=== PATIENT | male | born 1945 | race Caucasian/White ===

== ENCOUNTER 2017-08-04 09:51 | Inpatient (IN) | payer MEDICARE, OTHER ==
[2017-08-04] VITALS (19 sets, daily range): BP systolic 83–159; BP diastolic 47–114; PULSE 82–159; RESP 16–30; TEMP 97.6–98.6; O2SAT 90–99
[~2017-08-04] VITALS: Ht 175.3 cm; Wt 53.7 kg
[2017-08-04] MEDS ORDERED: SODIUM CHLORIDE 0.9% FLUSH 10 ML FLUSH IV FLUSH PRN ×2 (10:15→12:45)
[2017-08-04] MEDS ORDERED: ENOXAPARIN SODIUM 60 MG/0.6 ML SYRINGE SQ ONE (10:15)
[2017-08-04] MEDS ORDERED: DILTIAZEM HCL 25 MG/5 ML VIAL IV PUSH ONE (10:15)
[2017-08-04 10:21] LABS: AUTOMATED NEUTROPHIL # 9.3 TH/MM3 (1.8-7.7); BASOPHIL # 0.1 TH/MM3 (0-0.2); BASOPHIL % 0.9 % (0.0-2.0); EOSINOPHIL # 0.3 TH/MM3 (0-0.4); HEMATOCRIT 40.4 % (39.0-51.0); HEMOGLOBIN 13.1 GM/DL (13.0-17.0); LYMPH % 5.7 % (9.0-44.0); LYMPHOCYTE # 0.6 TH/MM3 (1.0-4.8); MEAN CELL VOLUME 89.3 FL (80.0-100.0); MEAN CORPUSCULAR HGB CONC 32.5 % (32.0-36.0); MEAN PLATELET VOLUME 7.8 FL (7.0-11.0); MONO % 6.6 % (0.0-8.0); MONOCYTE # 0.7 TH/MM3 (0-0.9); NEUT % 83.8 % (16.0-70.0); PLATELET COUNT 598 TH/MM3 (150-450); RED BLOOD COUNT 4.52 MIL/MM3 (4.50-5.90); RED CELL DISTRIBUTION WIDTH 14.9 % (11.6-17.2)
[2017-08-04 10:29] LABS: CHLORIDE 101 MEQ/L (98-107); SODIUM (NA) 138 MEQ/L (136-145)
[2017-08-04 10:32] LABS: CALCIUM 8.6 MG/DL (8.5-10.1)
[2017-08-04 10:33] LABS: ALBUMIN 2.9 GM/DL (3.4-5.0); BICARBONATE 29.5 MEQ/L (21.0-32.0); BLOOD UREA NITROGEN 14 MG/DL (7-18); GLUCOSE,RANDOM 141 MG/DL (74-106); INTERNATIONAL NORMALIZED RATIO 1.2 RATIO; PROTHROMBIN TIME - PATIENT 12.2 SEC (9.8-11.6)
[2017-08-04 10:36] LABS: ALT (GPT) 24 U/L (12-78); AST (GOT) 23 U/L (15-37); CREATININE 0.91 MG/DL (0.60-1.30); GLOMERULAR FILTRATION RATE 82 ML/MIN (>89)
[2017-08-04 10:37] LABS: TOTAL BILIRUBIN ADULT 0.3 MG/DL (0.2-1.0); TOTAL PROTEIN 8.3 GM/DL (6.4-8.2)
[2017-08-04 10:39] LABS: ALKALINE PHOSPHATASE 164 U/L (45-117)
[2017-08-04 10:41] LABS: TROPONIN I LESS THAN 0.02 NG/ML (0.02-0.05)
--- NOTE | 2017-08-04 10:56 | PD ---
HPI . Dyspnea Chief Complaint: Cardiac Complaint Time Seen by Provider: 10:07 Travel History International Travel<30 days: No Contact w/Intl Traveler<30days: No Traveled to known affect area: No History of Present Illness HPI This patient presents with chief complaint of dyspnea, onset was 2 weeks ago. Dyspnea is worse at nighttime when he lays down. Symptoms were worse than usual last night. He states that he finally decided that he needed to see someone about it today and went to an urgent care center. He was found to be in atrial fibrillation and sent to us for further evaluation. Patient states that he has no previous history of an irregular heartbeat and did not realize that his heart was beating irregularly. He has no idea when it may have started. The patient is very thin. His confirms that he has always been thin. He has had some weight loss over the last several years but nothing acute. PFSH Past Medical History Narrative Medical This patient denies any underlying medical illnesses. 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[place]) Social History Alcohol Use: No Tobacco Use: Yes (quit 4 years ago, e cig now) Substance Use: No Allergies-Medications (Allergen,Severity, Reaction): Coded Allergies: No Known Allergies (Unverified , 08/04/17) Reported Meds & Prescriptions Reported Meds & Active Scripts Active No Active Prescriptions or Reported Medications Review of Systems Except as stated in HPI: all other systems reviewed are Neg General / Constitutional: Positive: Weight Loss (he reports a gradual weight loss of 10-15 pounds over the last several years.) Cardiovascular: No: Chest Pain or Discomfort, Palpitations Respiratory: Positive: Shortness of Breath Physical Exam Narrative GENERAL: This is a very thin-appearing man who looks chronically ill SKIN: warm/dry. HEAD: Normocephalic. Atraumatic. EYES: Pupils equal and round. No scleral icterus. No injection or drainage. ENT: No nasal bleeding or discharge. Mucous membranes pink and moist. NECK: Full range of motion without pain.. CARDIOVASCULAR: Irregular rhythm with a rate of about 150. RESPIRATORY: No accessory muscle use. Clear to auscultation. Breath sounds are diminished on the right compared to the left. GASTROINTESTINAL: Abdomen soft. Nontender. Bowel sounds present. Nondistended. MUSCULOSKELETAL: No obvious deformities. 1+ pretibial pitting edema. NEUROLOGICAL: Awake and alert. No obvious cranial nerve deficits. Motor grossly within normal limits. Normal speech. PSYCHIATRIC: Appropriate mood and affect; insight and judgment normal. Data Data Last Documented VS Vital Signs Date Time Temp Pulse Resp B/P (MAP) Pulse Ox O2 Delivery O2 Flow Rate FiO2 08/04/17 12:10 100 16 111/67 (82) 98 Room Air 08/04/17 11:44 2.00 08/04/17 10:04 97.6 Orders Orders Ecg Monitoring (08/04/17 10:07) Blood Pressure (08/04/17 10:07) Iv Access Insert/Monitor (08/04/17 10:07) Oximetry (08/04/17 10:07) Vital Signs (08/04/17 10:07) Diltiazem Inj (Cardizem Inj) (08/04/17 10:15) Sodium Chloride 0.9% Flush (Ns Flush) (08/04/17 10:15) Complete Blood Count With Diff (08/04/17 10:08) Comprehensive Metabolic Panel (08/04/17 10:08) B-Type Natriuretic Peptide (08/04/17 10:08) Act Partial Throm Time (Ptt) (08/04/17 10:08) Prothrombin Time / Inr (Pt) (08/04/17 10:08) Troponin I (08/04/17 10:08) Oxygen Administration (08/04/17 10:08) Chest, Single Ap (08/04/17 10:08) Enoxaparin Inj (Lovenox Inj) (08/04/17 10:15) Diltiazem Inj (Cardizem Inj) (08/04/17 10:45) Diltiazem Inj (Cardizem Inj) (08/04/17 11:00) Electrocardiogram (08/04/17 ) Consult Cardiology (08/04/17 ) Admit Order (Ed Use Only) (08/04/17 ) Track Grinder / Telemetry MARTHA.Q8H (08/04/17 12:42) Vital Signs (Adult) Q4H (08/04/17 12:42) Diet Heart Healthy (08/04/17 Lunch) Activity Oob With Assistance (08/04/17 12:42) Notify Dr: Other (08/04/17 12:42) Labs Laboratory Tests Test 08/04/17 10:10 White Blood Count 11.0 TH/MM3 Red Blood Count 4.52 MIL/MM3 Hemoglobin 13.1 GM/DL Hematocrit 40.4 % Mean Corpuscular Volume 89.3 FL Mean Corpuscular Hemoglobin 29.0 PG Mean Corpuscular Hemoglobin Concent 32.5 % Red Cell Distribution Width 14.9 % Platelet Count 598 TH/MM3 Mean Platelet Volume 7.8 FL Neutrophils (%) (Auto) 83.8 % Lymphocytes (%) (Auto) 5.7 % Monocytes (%) (Auto) 6.6 % Eosinophils (%) (Auto) 3.0 % Basophils (%) (Auto) 0.9 % Neutrophils # (Auto) 9.3 TH/MM3 Lymphocytes # (Auto) 0.6 TH/MM3 Monocytes # (Auto) 0.7 TH/MM3 Eosinophils # (Auto) 0.3 TH/MM3 Basophils # (Auto) 0.1 TH/MM3 CBC Comment DIFF FINAL Differential Comment Prothrombin Time 12.2 SEC Prothromb Time International Ratio 1.2 RATIO Activated Partial Thromboplast Time 27.3 SEC Blood Urea Nitrogen 14 MG/DL Creatinine 0.91 MG/DL Random Glucose 141 MG/DL Total Protein 8.3 GM/DL Albumin 2.9 GM/DL Calcium Level 8.6 MG/DL Alkaline Phosphatase 164 U/L Aspartate Amino Transf (AST/SGOT) 23 U/L Alanine Aminotransferase (ALT/SGPT) 24 U/L Total Bilirubin 0.3 MG/DL Sodium Level 138 MEQ/L Potassium Level 3.7 MEQ/L Chloride Level 101 MEQ/L Carbon Dioxide Level 29.5 MEQ/L Anion Gap 8 MEQ/L Estimat Glomerular Filtration Rate 82 ML/MIN Troponin I LESS THAN 0.02 NG/ML B-Type Natriuretic Peptide 238 PG/ML [facility] Medical Decision Making Medical Screen Exam Complete: Yes Emergency Medical Condition: Yes Interpretation(s) His EKG shows atrial fibrillation with a rapid ventricular response Differential Diagnosis Differential diagnosis of tachycardia includes but is not limited to PSVT, atrial fibrillation with a rapid ventricular response, sinus tachycardia (due to hypovolemia, anemia, thyrotoxicosis, PE) Narrative Course This patient was sent to us from urgent care because of AF with RVR. He has no previous similar history. His presenting symptom is dyspnea especially at nighttime when he tries to lay down. Cardizem was ordered. His heart rate went down to about 100-110 and the initial bolus of Cardizem. A Cardizem drip was ordered. However, his heart rate is now jumped up to about 140. Therefore, a second bolus has also been ordered. In addition, I have given him a dose of Lovenox. Cardiac workup is in process. I have informed the patient and his that he will need to be admitted to the hospital for further evaluation of this. CBC & BMP Diagram 08/04/17 10:10 Total Protein 8.3 H, Albumin 2.9 L, Calcium Level 8.6, Alkaline Phosphatase 164 H, Aspartate Amino Transf (AST/SGOT) 23, Alanine Aminotransferase (ALT/SGPT) 24 , Total Bilirubin 0.3 trop < 0.02. BNP 238 Chest x-ray to my interpretation shows a right pleural effusion. Critical Care Narrative Aggregate critical care time was 45 minutes. Time to perform other separately billable procedures was not included in the critical care time. My time did not include minutes spent treating any other patients simultaneously or on activities that did not directly contribute to the patient's treatment. The services I provided to this patient were to treat and/or prevent clinically significant deterioration due to AF with RVR. I provided critical care services requiring my management, as noted below: Chart data review, documentation time, medication orders and management, vital sign assessments/reviewing monitor data, ordering and reviewing lab tests, ordering and interpreting/reviewing x-rays and diagnostic studies, care of the patient and discussion of the patient with the admitting physicians Physician Communication Physician Communication initial contact with the call center was at 11:31 Diagnosis Primary Impression: Atrial fibrillation with RVR Admitting Information Admitting Physician Requests: Admit Scripts No Active Prescriptions or Reported Meds Condition: Stable Gunjan Carrasquillo MD Aug 04, 2017 10:56
[2017-08-04] MEDS ORDERED: DILTIAZEM HCL 25 MG/5 ML VIAL IV PUSH PRN (11:00)
[2017-08-04] MEDS: DILTIAZEM INJ 125 MG in SODIUM CHLORIDE 0.9% INJ 100 ML IV PRN (11:03)
--- NOTE | 2017-08-04 11:14 | RADRPT ---
EXAM DATE/TIME: 08/04/2017 10:46 [facility] COMPARISON: No previous studies available for comparison. INDICATIONS : Short of breath. MEDICAL HISTORY : None. SURGICAL HISTORY : Splenectomy. ENCOUNTER: Initial ACUITY: 4 - 6 days PAIN SCORE: 0/10 LOCATION: Bilateral chest FINDINGS: Moderate size right effusion and small left effusion. Basilar airspace disease, right greater than le ft. Heart size mildly enlarged. CONCLUSION: 1. Moderate right effusion and small left effusion with basilar airspace disease predominantly on the right. Differential diagnosis includes asymmetric edema and infection. Manuel Beckham MD on August 04, 2017 at 11:11 Board Certified Radiologist. This report was verified electronically.
[2017-08-04] MEDS ORDERED: NALOXONE HCL 0.4 MG/ML AMP IV PUSH PRN (12:45)
[2017-08-04] MEDS ORDERED: ONDANSETRON HCL 4 MG/2 ML VIAL IVP PRN (12:45)
[2017-08-04] MEDS ORDERED: MAGNESIUM HYDROXIDE SUSP 30 ML CUP PO PRN (12:45)
--- NOTE | 2017-08-04 16:30 | HHI.HP ---
[facility] Service [place] [facility] Primary Care Physician No Primary Care Physician Admission Diagnosis new onset AF with RVR Diagnoses: Travel History International Travel<30 Days: No Contact w/Intl Traveler <30 Da: No Traveled to Known Affected Are: No History of Present Illness Mr. Ca is a 72 year old male. He has no previous medical history other than a past history of smoking. He came into the ER with shortness of breath. He thought it was bronchitis. She is found to have A. fib RVR. No prior history of A. fib or RVR. Shortness of breath is more likely related to his degree of pulmonary edema, however he does have a past history of smoking so COPD may be present. No complaints of chest pain. Review of Systems Constitutional: DENIES: Fatigue, Fever, Chills, Night Sweats Eyes: DENIES: Blurred vision, Diplopia, Eye inflammation, Eye pain Ears, nose, mouth, throat: DENIES: Tinnitus, Hearing loss, Vertigo, Nasal discharge Respiratory: COMPLAINS OF: Shortness of breath, DENIES: Cough, Snoring, Wheezing Cardiovascular: COMPLAINS OF: Palpitations, DENIES: Chest pain, Syncope Gastrointestinal: DENIES: Abdominal pain, Black stools, Bloody stools, Constipation Musculoskeletal: DENIES: Joint pain, Muscle aches, Stiffness, Joint Swelling Integumentary: DENIES: Abnormal pigmentation, Nail changes, Pruritus, Rash Hematologic/lymphatic: DENIES: Bruising, Lymphadenopathy Immunologic/allergic: DENIES: Eczema, Urticaria Neurologic: DENIES: Abnormal gait, Headache, Paresthesias Psychiatric: DENIES: Anxiety, Confusion, Hallucinations Past Family Social History Past Medical History None Past Surgical History None Reported Medications Reported Meds & Active Scripts Active No Active Prescriptions or Reported Medications Allergies: Coded Allergies: No Known Allergies (Unverified , 08/04/17) Active Ordered Medications Administered Medications Medications (Trade) Dose Ordered Sig/Rakesh Route PRN Reason Start Time Stop Time Status Last Admin Dose Admin Diltiazem HCl 125 mg/Sodium Chloride 125 ml @ 5 mls/hr TITRATE PRN IV Tachycardia 08/04/17 10:45 08/04/17 11:03 Diltiazem HCl (Cardizem Inj) 19 mg ONCE PRN IV PUSH RESPONSE 08/04/17 11:00 08/04/17 11:41 Family History Uterine cancer in mother COPD and unspecified cancer in father Social History Patient has a past history of smoking and has quit and been on and e-cigarette for the past 4 years No illicit drug abuse No alcohol abuse Physical Exam Vital Signs Vital Signs Date Time Temp Pulse Resp B/P (MAP) Pulse Ox O2 Delivery O2 Flow Rate FiO2 08/04/17 15:31 97 Nasal Cannula 2.00 08/04/17 15:02 08/04/17 14:57 100 20 98/47 (64) 08/04/17 14:50 98.6 115 18 83/69 (74) 97 08/04/17 13:46 106 16 95/68 (77) 98 Nasal Cannula 2.00 08/04/17 13:45 98 Nasal Cannula 2.00 08/04/17 12:10 100 16 111/67 (82) 98 Room Air 08/04/17 11:44 121 16 133/86 (102) 98 Nasal Cannula 2.00 08/04/17 11:31 141 16 121/86 (98) 99 Nasal Cannula 2.00 08/04/17 11:03 123 128/84 08/04/17 10:40 109 16 120/84 (96) 99 Nasal Cannula 2.00 08/04/17 10:13 96 Nasal Cannula 2.00 08/04/17 10:13 96 Nasal Cannula 2.00 08/04/17 10:07 96 Nasal Cannula 2.00 08/04/17 10:04 97.6 159 20 159/114 (129) 94 Physical Exam GENERAL: NAD, A&Ox3 HEAD: Normocephalic. NECK: Supple, trachea midline. No lymphadenopathy. EYES: No scleral icterus. No injection or drainage. CARDIOVASCULAR: Tachycardic rhythm, irregularly irregular rate without murmurs, gallops, or rubs. RESPIRATORY: Breath sounds equal bilaterally. No accessory muscle use. GASTROINTESTINAL: Abdomen soft, non-tender, nondistended. MUSCULOSKELETAL: No cyanosis, or edema. SKIN: Warm and dry. NEURO: No focal neurological deficitis. Laboratory Laboratory Tests Test 08/04/17 10:10 White Blood Count 11.0 Red Blood Count 4.52 Hemoglobin 13.1 Hematocrit 40.4 Mean Corpuscular Volume 89.3 Mean Corpuscular Hemoglobin 29.0 Mean Corpuscular Hemoglobin Concent 32.5 Red Cell Distribution Width 14.9 Platelet Count 598 Mean Platelet Volume 7.8 Neutrophils (%) (Auto) 83.8 Lymphocytes (%) (Auto) 5.7 Monocytes (%) (Auto) 6.6 Eosinophils (%) (Auto) 3.0 Basophils (%) (Auto) 0.9 Neutrophils # (Auto) 9.3 Lymphocytes # (Auto) 0.6 Monocytes # (Auto) 0.7 Eosinophils # (Auto) 0.3 Basophils # (Auto) 0.1 CBC Comment DIFF FINAL Differential Comment Prothrombin Time 12.2 Prothromb Time International Ratio 1.2 Activated Partial Thromboplast Time 27.3 Blood Urea Nitrogen 14 Creatinine 0.91 Random Glucose 141 Total Protein 8.3 Albumin 2.9 Calcium Level 8.6 Alkaline Phosphatase 164 Aspartate Amino Transf (AST/SGOT) 23 Alanine Aminotransferase (ALT/SGPT) 24 Total Bilirubin 0.3 Sodium Level 138 Potassium Level 3.7 Chloride Level 101 Carbon Dioxide Level 29.5 Anion Gap 8 Estimat Glomerular Filtration Rate 82 Troponin I LESS THAN 0.02 B-Type Natriuretic Peptide 238 Result Diagram: 08/04/17 1010 08/04/17 1010 Imaging Last Impressions Chest X-Ray 08/04/17 1008 Signed Impressions: Service Date/Time: Friday, August 04, 2017 10:46 - CONCLUSION: 1. Moderate right effusion and small left effusion with basilar airspace disease predominantly on the right. Differential diagnosis includes asymmetric edema and infection. Manuel Beckham MD Caprini VTE Risk Assessment Caprini VTE Risk Assessment: No/Low Risk (score <= 1) Caprini Risk Assessment Model Point Value = 1 Point Value = 2 Point Value = 3 Point Value = 5 Age 41-60 Minor surgery BMI > 25 kg/m2 Swollen legs Varicose veins or History of unexplained or recurrent spontaneous Oral contraceptives or hormone replacement Sepsis (< 1 month) Serious lung disease, including pneumonia (< 1 month) Abnormal pulmonary function Acute myocardial infarction Congestive heart failure (< 1 month) History of inflammatory bowel disease Medical patient at bed rest Age 61-74 Arthroscopic surgery Major open surgery (> 45 min) Laparoscopic surgery (> 45 min) Malignancy Confined to bed (> 72 hours) Immobilizing plaster cast Central venous access Age >= 75 History of VTE Family history of VTE Factor V Leiden Prothrombin [id number] Lupus anticoagulant Anticardiolipin antibodies Elevated serum homocysteine Heparin-induced thrombocytopenia Other congenital or acquired thrombophilia Stroke (< 1 month) Elective arthroplasty Hip, pelvis, or leg fracture Acute spinal cord injury (< 1 month) Prophylaxis Regimen Total Risk Factor Score Risk Level Prophylaxis Regimen 0-1 Low Early ambulation 2 Moderate Order ONE of the following: *Sequential Compression Device (SCD) *Heparin 5000 units SQ BID 3-4 Higher Order ONE of the following medications: *Heparin 5000 units SQ TID *Enoxaparin/Lovenox 40 mg SQ daily (WT < 150 kg, CrCl > 30 mL/min) *Enoxaparin/Lovenox 30 mg SQ daily (WT < 150 kg, CrCl > 10-29 mL/min) *Enoxaparin/Lovenox 30 mg SQ BID (WT < 150 kg, CrCl > 30 mL/min) AND/OR *Sequential Compression Device (SCD) 5 or more Highest Order ONE of the following medications: *Heparin 5000 units SQ TID (Preferred with Epidurals) *Enoxaparin/Lovenox 40 mg SQ daily (WT < 150 kg, CrCl > 30 mL/min) *Enoxaparin/Lovenox 30 mg SQ daily (WT < 150 kg, CrCl > 10-29 mL/min) *Enoxaparin/Lovenox 30 mg SQ BID (WT < 150 kg, CrCl > 30 mL/min) AND *Sequential Compression Device (SCD) Assessment and Plan Problem List: (1) Pleural effusion ICD Code: J90 - Pleural effusion, not elsewhere classified (2) Atrial fibrillation with RVR ICD Code: I48.91 - Unspecified atrial fibrillation Status: Acute Assessment and Plan 72-year-old male admitted secondary to new onset A. fib RVR A. fib RVR Evaluate for ACS Follow cardiac enzymes Aspirin daily Oxygen Follow on telemetry Cardiology consult Dyspnea Treat A-fib RVR Oxygen as needed Pleural effusion May be secondary to A. fib RVR versus chronic Before considering this as the cause of Dyspnea, correct A-fib RVR DVT Prophylaxis Lovenox Physician Certification 2 Midnight Certification Type: Admission for Inpatient Services Order for Inpatient Services The services are ordered in accordance with Medicare regulations or non- Medicare payer requirements, as applicable. In the case of services not specified as inpatient-only, they are appropriately provided as inpatient services in accordance with the 2-midnight benchmark. Estimated LOS (days): 2 days is the estimated time the patient will need to remain in the hospital, assuming treatment plan goals are met and no additional complications. Post-Hospital Plan: Home Alverto Coates MD Aug 04, 2017 16:30
--- NOTE | 2017-08-04 20:37 | MB ---
cc: Serafin Vallejo MD DATE OF CONSULT: A 72-year-old white male with no previous cardiac history, has developed shortness of breath which was worse at night. He came to the emergency room since he thought he had bronchitis. He was found to be in atrial fibrillation with rapid ventricular response. He has not had any chest pain. He has previous history of smoking. He has not had any peripheral edema. PAST MEDICAL HISTORY: Negative for hypertension, dyslipidemia, diabetes mellitus, coronary artery disease, or CVA. He does not have a primary physician. He is a retired and can go [place]. ALLERGIES: NONE. SOCIAL HISTORY: Patient has previous history of smoking but does not smoke anymore. He does not drink alcohol heavily. FAMILY HISTORY: Negative for heart disease. REVIEW OF SYSTEMS: Otherwise negative. PHYSICAL EXAMINATION: VITAL SIGNS: Blood pressure 109/64, pulse 106 and irregular. HEENT: Negative. NECK: Positive carotid upstrokes, no bruits. LUNGS: A few rhonchi. HEART: Irregularly irregular with no murmurs, rubs or gallops. ABDOMEN: Soft, no bruits. EXTREMITIES: Without edema. 2+ distal pulses. NEUROLOGIC: Grossly nonfocal. EKG was reviewed and showed atrial fibrillation with rapid ventricular response, and poor R wave progression over precordial leads. LABORATORY DATA: Hemoglobin 13.1. Potassium 3.7, creatinine 0.9, troponin negative x 2. AST 23, ALT 24. BNP 258. DIAGNOSES: 1. Atrial fibrillation with rapid ventricular response. 2. Dyspnea. 3. Pleural effusion. 4. Possible chronic obstructive pulmonary disease. 5. History of smoking. RECOMMENDATIONS: Mr. Ca presented with atrial fibrillation with rapid ventricular response. He has no previous cardiac history and he has not been seen by a physician for a while. I recommend rate control with IV diltiazem which can be switched to p.o. diltiazem. I recommend to start anticoagulation with Xarelto 20 mg a day. We will obtain echocardiogram to evaluate his left ventricular function. The patient is a retired and he can and wishes to follow up [facility]. I will be happy to see him back for followup in our office after discharge as well. I recommend to consider cardioversion after at least 3 weeks of therapeutic anticoagulation. MD DEBORAH Sanchez/ , 08:05 PM , 08:35 PM TOBY
[2017-08-04] MEDS: SODIUM CHLORIDE 0.9% FLUSH 10 ML FLUSH IV FLUSH SCH (20:40)
--- NOTE | 2017-08-04 22:57 | EKG ---
Date Performed: 08/04/2017 Time Performed: 09:58:40 PTAGE: 72 years EKG: ATRIAL FIBRILLATION WITH RAPID VENTRICULAR RESPONSE MARKED RIGHT AXIS DEVIATION LOW QRS VOL TAGE IN EXTREMITY LEADS POSSIBLE ANTERIOR MYOCARDIAL INFARCTION ABNORMAL ECG NO PREVIOUS TRACING DOCTOR: German Zarate Interpretating Date/Time 08/04/2017 22:56:06
[2017-08-05] VITALS (15 sets, daily range): BP systolic 86–132; BP diastolic 52–83; PULSE 88–136; RESP 15–26; TEMP 97.2–98.3; O2SAT 9–98
[2017-08-05] MEDS: DILTIAZEM INJ 125 MG in SODIUM CHLORIDE 0.9% INJ 100 ML IV PRN (02:56)
[2017-08-05 06:28] LABS: AUTOMATED NEUTROPHIL # 6.4 TH/MM3 (1.8-7.7); BASOPHIL # 0.4 TH/MM3 (0-0.2); BASOPHIL % 3.7 % (0.0-2.0); EOSINOPHIL # 1.1 TH/MM3 (0-0.4); EOSINOPHIL % 10.9 % (0.0-4.0); HEMATOCRIT 33.4 % (39.0-51.0); LYMPHOCYTE # 0.8 TH/MM3 (1.0-4.8); MEAN CELL VOLUME 88.9 FL (80.0-100.0); MEAN CORPUSCULAR HEMOGLOBIN 29.9 PG (27.0-34.0); MEAN CORPUSCULAR HGB CONC 33.6 % (32.0-36.0); MEAN PLATELET VOLUME 7.8 FL (7.0-11.0); MONO % 10.4 % (0.0-8.0); PLATELET COUNT 447 TH/MM3 (150-450); RED BLOOD COUNT 3.76 MIL/MM3 (4.50-5.90); RED CELL DISTRIBUTION WIDTH 14.9 % (11.6-17.2); WHITE BLOOD COUNT 9.7 TH/MM3 (4.0-11.0)
[2017-08-05 06:30] LABS: HEMOGLOBIN 11.2 GM/DL (13.0-17.0)
[2017-08-05 07:32] LABS: BANDS 2 % (0-6); LYMPHOCYTES 4 % (9-44); MONOCYTES 7 % (0-8); NEUTROPHIL # MANUAL DIFF 7.6 TH/MM3 (1.8-7.7); POLYS (SEG NEUTROPHILS) 76 % (16-70)
[2017-08-05] MEDS: SODIUM CHLORIDE 0.9% FLUSH 10 ML FLUSH IV FLUSH SCH ×2 (08:38→20:37)
[2017-08-05] MEDS: ENOXAPARIN SODIUM 40 MG/0.4 ML SYRINGE SQ SCH (08:38)
[2017-08-05] MEDS ORDERED: DILTIAZEM-CD 120 MG CAP ER PO SCH (09:00)
--- NOTE | 2017-08-05 10:12 | HHI.PR ---
Subjective Remarks Uncontrolled A-fib RVR, no Diltiazem. Cardiology recommends monitoring for 2-3 weeks and possible intervention if persisting through that time. No new complaints from the patient. Objective Vital Signs Date Time Temp Pulse Resp B/P (MAP) Pulse Ox O2 Delivery O2 Flow Rate FiO2 08/05/17 08:00 97.6 100 15 109/69 (82) 93 08/05/17 08:00 119 08/05/17 08:00 97 Room Air 08/05/17 07:12 116 16 118/75 (89) 97 08/05/17 06:00 108 18 125/82 (96) 96 08/05/17 06:00 112 125/82 08/05/17 05:12 136 26 125/82 (96) 95 08/05/17 04:12 97.8 134 19 114/67 (83) 95 08/05/17 04:00 117 08/05/17 03:12 118 16 87/63 (71) 96 08/05/17 02:56 102 110/67 08/05/17 02:12 106 17 110/67 (81) 95 08/05/17 01:12 98 15 106/76 (86) 98 08/05/17 00:12 88 16 104/75 (85) 91 08/05/17 00:00 98.3 96 17 86/52 (63) 93 08/05/17 00:00 89 08/05/17 00:00 96 17 93 08/04/17 21:25 93 21 08/04/17 21:12 94 16 105/69 (81) 93 08/04/17 21:12 94 16 105/69 (81) 93 08/04/17 20:12 97.8 104 18 104/67 (79) 95 08/04/17 20:12 104 18 104/67 (79) 95 08/04/17 20:00 98 08/04/17 20:00 108 28 96 08/04/17 17:00 90 25 109/64 (79) 96 08/04/17 16:45 98 25 106/71 (83) 95 08/04/17 16:28 106 30 93/81 (85) 90 08/04/17 16:00 82 08/04/17 15:31 97 Nasal Cannula 2.00 08/04/17 15:10 102 20 99/63 (75) 93 08/04/17 15:02 08/04/17 14:57 100 20 98/47 (64) 08/04/17 14:50 100 08/04/17 14:50 98.6 115 18 83/69 (74) 97 08/04/17 13:46 106 16 95/68 (77) 98 Nasal Cannula 2.00 08/04/17 13:45 98 Nasal Cannula 2.00 08/04/17 12:10 100 16 111/67 (82) 98 Room Air 08/04/17 11:44 121 16 133/86 (102) 98 Nasal Cannula 2.00 08/04/17 11:31 141 16 121/86 (98) 99 Nasal Cannula 2.00 08/04/17 11:03 123 128/84 08/04/17 10:40 109 16 120/84 (96) 99 Nasal Cannula 2.00 08/04/17 10:13 96 Nasal Cannula 2.00 08/04/17 10:13 96 Nasal Cannula 2.00 I/O 08/04/17 08/04/17 08/04/17 08/05/17 08/05/17 08/05/17 07:00 15:00 23:00 07:00 15:00 23:00 Intake Total 120 ml 194 ml Balance 120 ml 194 ml Intake Oral 120 ml 120 ml IV Total 74 ml # Voids 4 # Bowel Movements 0 Result Diagram: 08/05/17 0610 08/04/17 1010 Objective Remarks GENERAL: NAD, A&Ox3 HEAD: Normocephalic. NECK: Supple, trachea midline. No lymphadenopathy. EYES: No scleral icterus. No injection or drainage. CARDIOVASCULAR: Tachycardia, irregular rhythm, without murmurs, gallops, or rubs. RESPIRATORY: Breath sounds equal bilaterally. No accessory muscle use. GASTROINTESTINAL: Abdomen soft, non-tender, nondistended. MUSCULOSKELETAL: No cyanosis, or edema. SKIN: Warm and dry. NEURO: No focal neurological deficitis. A/P Problem List: (1) Pleural effusion ICD Code: J90 - Pleural effusion, not elsewhere classified (2) Atrial fibrillation with RVR ICD Code: I48.91 - Unspecified atrial fibrillation Status: Acute Assessment and Plan 72-year-old male admitted secondary to new onset A. fib RVR A. fib RVR Negative evaluation for ACS Negative cardiac enzymes Aspirin daily Oxygen Follow on telemetry Cardiology consult Continue Digoxin Continue Cardizem Follow for improvement Dyspnea Treat A-fib RVR Oxygen as needed Pleural effusion May be secondary to A. fib RVR versus chronic Before considering this as the cause of Dyspnea, correct A-fib RVR DVT Prophylaxis Alverto Mccrary MD Aug 05, 2017 10:12
[2017-08-05 10:41] LABS: CHLORIDE 105 MEQ/L (98-107); SODIUM (NA) 140 MEQ/L (136-145)
[2017-08-05 10:44] LABS: ALBUMIN 2.4 GM/DL (3.4-5.0); BICARBONATE 28.3 MEQ/L (21.0-32.0); GLUCOSE,RANDOM 89 MG/DL (74-106)
[2017-08-05 10:45] LABS: BLOOD UREA NITROGEN 13 MG/DL (7-18)
[2017-08-05 10:47] LABS: ALT (GPT) 22 U/L (12-78)
[2017-08-05 10:48] LABS: AST (GOT) 19 U/L (15-37); CREATININE 0.67 MG/DL (0.60-1.30); GLOMERULAR FILTRATION RATE 117 ML/MIN (>89)
[2017-08-05 10:49] LABS: TOTAL BILIRUBIN ADULT 0.2 MG/DL (0.2-1.0); TOTAL PROTEIN 6.8 GM/DL (6.4-8.2)
[2017-08-05 10:50] LABS: ALKALINE PHOSPHATASE 127 U/L (45-117)
[2017-08-05] MEDS ORDERED: DIGOXIN 0.5 MG/2 ML VIAL IV PUSH ONE ×2 (11:00→19:30)
--- NOTE | 2017-08-05 12:34 | ECHRPT ---
Indication: A FIB SOB CONCLUSIONS Normal left ventricular size. Wall thickness is normal. The left ventricular systolic function is moderately reduced with an estimated ejection fraction in the range of 40-45%. Mitral annular calcification is present. Trace mitral valve regurgitation. Aortic valve sclerosis is present. There is trace tricuspid valve regurgitation. BP: / HR: Rhythm: MEASUREMENTS (Male / Female) Normal Values Technical Quality: 2D ECHO LV Diastolic Diameter PLAX 4.0 cm 4.2 - 5.9 / 3.9 - 5.3 cm LV Systolic Diameter PLAX 3.3 cm IVS Diastolic Thickness 0.7 cm 0.6 - 1.0 / 0.6 - 0.9 cm LVPW Diastolic Thickness 0.5 cm 0.6 - 1.0 / 0.6 - 0.9 cm LV Relative Wall Thickness 0.3 LA Systolic Diameter LX 3.5 cm 3.0 - 4.0 / 2.7 - 3.8 cm M-MODE Aortic Root Diameter MM 2.2 cm AV Cusp Separation MM 1.4 cm DOPPLER TR Peak Velocity 254.0 cm/s TR Peak Gradient 25.8 mmHg Right Atrial Pressure 5.0 mmHg Pulmonary Artery Systolic Pressu 30.8 mmHg Right Ventricular Systolic Press 30.8 mmHg FINDINGS LEFT VENTRICLE Normal left ventricular size. Wall thickness is normal. The left ventricular systolic function is moderately reduced with an estimated ejection fraction in the range of 40-45%. RIGHT VENTRICLE Normal right ventricular size and systolic function. LEFT ATRIUM The left atrial size is normal. RIGHT ATRIUM The right atrial size is normal. ATRIAL SEPTUM Normal atrial septal thickness without atrial level shunting by limited color doppler interrogation. AORTA The aortic root and proximal ascending aorta are normal in size on limited imaging. MITRAL VALVE Mitral annular calcification is present. Trace mitral valve regurgitation. AORTIC VALVE Aortic valve sclerosis is present. TRICUSPID VALVE There is trace tricuspid valve regurgitation. PULMONARY VALVE No pulmonary valve regurgitation or stenosis. VESSELS The inferior vena cava is normal in size. PERICARDIUM No pericardial effusion. Jerardo Thomas MD, FACC (Electronically Signed) Final Date:05 August 2017 12:33
[2017-08-05] MEDS ORDERED: METOPROLOL TARTRATE 5 MG/5 ML VIAL IV PUSH PRN (18:15)
[2017-08-05] MEDS: DILTIAZEM-CD 120 MG CAP ER PO SCH (20:37)
[2017-08-06] VITALS (9 sets, daily range): BP systolic 91–124; BP diastolic 53–68; PULSE 65–98; RESP 20–32; TEMP 97.4–98.6; O2SAT 93–96
[2017-08-06] MEDS: ENOXAPARIN SODIUM 40 MG/0.4 ML SYRINGE SQ SCH (08:16)
[2017-08-06] MEDS: DILTIAZEM-CD 120 MG CAP ER PO SCH ×2 (08:16→20:35)
[2017-08-06] MEDS: SODIUM CHLORIDE 0.9% FLUSH 10 ML FLUSH IV FLUSH SCH ×2 (08:16→20:35)
[2017-08-06] MEDS: DIGOXIN 0.5 MG/2 ML VIAL IV PUSH SCH (10:26)
--- NOTE | 2017-08-06 17:20 | HHI.PR ---
Subjective Remarks Persisting atrial fibrillation. RVR has resolved. No complaints from the patient. Of note patient has had a stable weight for 30-40 years in his low BMI is related to short gut syndrome which is chronic and he is ready taking supplements for this. Objective Vital Signs Date Time Temp Pulse Resp B/P (MAP) Pulse Ox O2 Delivery O2 Flow Rate FiO2 08/06/17 16:59 68 08/06/17 14:00 74 08/06/17 12:00 97.4 83 32 91/53 (66) 95 08/06/17 10:00 72 08/06/17 08:30 Room Air 2.00 21 08/06/17 08:00 97.5 78 23 117/67 (84) 95 08/06/17 08:00 78 08/06/17 04:00 76 08/06/17 04:00 97.4 72 25 116/58 (77) 96 08/06/17 00:00 98.5 91 20 124/68 (86) 93 08/06/17 00:00 98 08/05/17 20:00 105 08/05/17 20:00 97.8 108 17 112/78 (89) 9 08/05/17 19:00 95 Room Air 2.00 I/O 08/05/17 08/05/17 08/05/17 08/06/17 08/06/17 08/06/17 07:00 15:00 23:00 07:00 15:00 23:00 Intake Total 194 ml 26 ml 1100 ml 120 ml Output Total 300 ml Balance 194 ml 26 ml 1100 ml 120 ml -300 ml Intake Oral 120 ml 1100 ml 120 ml IV Total 74 ml 26 ml Output Urine Total 300 ml # Voids 4 5 4 # Bowel Movements 0 1 0 Result Diagram: 08/05/17 0610 08/05/17 0610 Objective Remarks GENERAL: NAD, A&Ox3 HEAD: Normocephalic. NECK: Supple, trachea midline. No lymphadenopathy. EYES: No scleral icterus. No injection or drainage. CARDIOVASCULAR: Tachycardia, irregular rhythm, without murmurs, gallops, or rubs. RESPIRATORY: Breath sounds equal bilaterally. No accessory muscle use. GASTROINTESTINAL: Abdomen soft, non-tender, nondistended. MUSCULOSKELETAL: No cyanosis, or edema. SKIN: Warm and dry. NEURO: No focal neurological deficitis. A/P Problem List: (1) Pleural effusion ICD Code: J90 - Pleural effusion, not elsewhere classified (2) Atrial fibrillation with RVR ICD Code: I48.91 - Unspecified atrial fibrillation Status: Acute Assessment and Plan 72-year-old male admitted secondary to new onset A. fib RVR A. fib RVR New onset atrial fibrillation Persistent atrial fibrillation Rate control is improved Monitor overnight Consider discharge tomorrow if stable Negative evaluation for ACS Negative cardiac enzymes Aspirin daily Oxygen Follow on telemetry Cardiology consult Continue Digoxin Continue Cardizem Follow for improvement Dyspnea Improved Oxygen as needed Pleural effusion Likely related to A. fib RVR Breathing is improved No immediate thoracentesis recommended DVT Prophylaxis Alverto Mccrary MD Aug 06, 2017 17:20
[2017-08-07] VITALS: BP 109/57; PULSE 76; RESP 20; TEMP 97.6
[2017-08-07 04:00] VITALS: BP 97/46; PULSE 74; RESP 31; TEMP 98; O2SAT 98
[2017-08-07] MEDS: DILTIAZEM-CD 120 MG CAP ER PO SCH (07:43)
[2017-08-07] MEDS: DIGOXIN 0.5 MG/2 ML VIAL IV PUSH SCH (07:43)
[2017-08-07] MEDS: SODIUM CHLORIDE 0.9% FLUSH 10 ML FLUSH IV FLUSH SCH (07:43)
[2017-08-07] MEDS: ENOXAPARIN SODIUM 40 MG/0.4 ML SYRINGE SQ SCH (07:43)
[2017-08-07 08:00] VITALS: BP 125/71; PULSE 82; RESP 30; TEMP 98
[2017-08-07] MEDS ORDERED: XARE20TA PO (09:18)
[2017-08-07] MEDS ORDERED: DIGO0.12 PO (09:18)
[2017-08-07] MEDS ORDERED: DILT120C50 PO (09:18)
[2017-08-07 09:26] VITALS: BP 119/57; PULSE 88; RESP 24
[2017-08-07 09:39] VITALS: BP 118/54; PULSE 80; RESP 32; O2SAT 95
--- NOTE | 2017-08-07 11:16 | HHI.DS ---
Discharge Summary Admission Date Aug 04, 2017 at 12:44 Discharge Date: Aug 07, 2017 Admitting Diagnosis new onset AF with RVR (1) Pleural effusion ICD Code: J90 - Pleural effusion, not elsewhere classified Diagnosis: Principal (2) Atrial fibrillation with RVR ICD Code: I48.91 - Unspecified atrial fibrillation Diagnosis: Principal Status: Acute Procedures none Brief History - From Admission Mr. Ca is a 72 year old male. He has no previous medical history other than a past history of smoking. He came into the ER with shortness of breath. He thought it was bronchitis. She is found to have A. fib RVR. No prior history of A. fib or RVR. Shortness of breath is more likely related to his degree of pulmonary edema, however he does have a past history of smoking so COPD may be present. No complaints of chest pain. CBC/BMP: 08/05/17 0610 08/05/17 0610 Significant Findings Laboratory Tests Test 08/04/17 17:12 08/04/17 22:40 08/05/17 06:10 Troponin I LESS THAN 0.02 NG/ML LESS THAN 0.02 NG/ML Red Blood Count 3.76 MIL/MM3 (4.50-5.90) Hemoglobin 11.2 GM/DL (13.0-17.0) Hematocrit 33.4 % (39.0-51.0) Lymphocytes (%) (Auto) 8.0 % (9.0-44.0) Monocytes (%) (Auto) 10.4 % (0.0-8.0) Eosinophils (%) (Auto) 10.9 % (0.0-4.0) Basophils (%) (Auto) 3.7 % (0.0-2.0) Lymphocytes # (Auto) 0.8 TH/MM3 (1.0-4.8) Monocytes # (Auto) 1.0 TH/MM3 (0-0.9) Eosinophils # (Auto) 1.1 TH/MM3 (0-0.4) Basophils # (Auto) 0.4 TH/MM3 (0-0.2) Neutrophils % (Manual) 76 % (16-70) Lymphocytes % 4 % (9-44) Eosinophils % 11 % (0-4) Albumin 2.4 GM/DL (3.4-5.0) Calcium Level 8.0 MG/DL (8.5-10.1) Alkaline Phosphatase 127 U/L (45-117) Hospital Course Mr. Ca is a 72-year-old male. He has no prior history of atrial fibrillation but came in with new onset atrial fibrillation RVR. Treatments with Cardizem and digoxin have provided him benefit and he is now rate controlled but not out of A. fib. Cardiology plans to follow up with him in 2- 3 weeks for possible cardioversion or ablation at that time, if symptoms are continuing. Xarelto will be provided as an anticoagulant. Patient is medically stable for greater than 24 hours now and cleared for discharge home today. Pt Condition on Discharge: Stable Discharge Disposition: Discharge Home Discharge Time: <= 30 minutes Discharge Instructions DIET: Follow Instructions for: As Tolerated, No Restrictions Activities you can perform: Regular-No Restrictions Follow up Referrals: Cardiology - 2 Weeks with Serafin Vallejo MD PCP Follow-up - 2 Weeks New Medications: Digoxin (Digoxin) 0.125 Mg Tab 0.125 MG PO DAILY for Regulate Heart Beat, #30 TAB 0 Refills Rivaroxaban (Xarelto) 20 Mg Tab 20 MG PO DAILY for Blood Clot Prevention, #30 TAB 0 Refills Diltiazem CD 24 HR (Diltiazem CD 24 HR) 120 Mg Caper 120 MG PO BID for Heart Rate Control, #60 CAP Alverto Coates MD Aug 07, 2017 11:16
== END 2017-08-07 13:44 | disposition home or self-care (01) | DRG 309 ==
LOC: PHED 09:51 → PHEDA 12:44 → PHICU 14:49
PROVIDERS: ADMIT Hospitalist; ATTEND Hospitalist
DX: I48.91 Unspecified atrial fibrillation (principal); J90 Pleural effusion, not elsewhere classified; K91.2 Postsurgical malabsorption, not elsewhere classified; F17.290 Nicotine dependence, other tobacco product, uncomplicated
CPT/HCPCS: 71045; 80053; 83880; 84484; 85007; 85025; 85027; 85610; 85730; 93005; 93306; 96365; 96366; 96372; 96375; J1160; J1650

== ENCOUNTER 2018-02-03 15:21 | Inpatient (IN) ==
[2018-02-03 16:55] LABS: Baso # (Auto) 0.1 th/mm3 (0.0-0.2); Baso % (Auto) 0.8 % (0.0-2.0); Eos % (Auto) 8.1 % (0.0-4.0); Hematocrit 34.9 % (39.0-51.0); Hemoglobin 11.5 gm/dL (13.0-17.0); Lymph # (Auto) 0.8 th/mm3 (1.0-4.8); Mean Corpuscular HGB Conc 32.9 % (32.0-36.0); Mean Corpuscular Hemoglobin 29.2 pg (27.0-34.0); Mean Corpuscular Volume 88.9 fL (80.0-100.0); Mean Platelet Volume 8.8 fL (7.0-11.0); Mono # (Auto) 1.2 th/mm3 (0.0-0.9); Mono % (Auto) 9.7 % (0.0-8.0); Neut # (Auto) 8.8 th/mm3 (1.8-7.7); Neut % (Auto) 74.4 % (16.0-70.0); Platelet Count 475 th/mm3 (150-450); Red Blood Count 3.93 mil/mm3 (4.50-5.90); Red Cell Distribution Width 15.5 % (11.6-17.2); White Blood Count 11.9 th/mm3 (4.0-11.0)
[2018-02-03 17:13] LABS: Activated Partial Thrombo Time 33.7 sec (24.3-30.1); INR 1.4 Ratio; Prothrombin Time 13.9 sec (9.8-11.6)
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
[2018-02-03 17:16] LABS: Chloride 103 meq/L (98-107); Sodium 139 meq/L (136-145)
[2018-02-03 17:19] LABS: Calcium 8.6 mg/dL (8.5-10.1)
[2018-02-03 17:20] LABS: Albumin 2.4 g/dL (3.4-5.0); Anion Gap 8 meq/L (5-15); Blood Urea Nitrogen 18 mg/dL (7-18); Carbon Dioxide 27.8 meq/L (21.0-32.0); Eosinophils 10 % (0-4); Glucose,Random 90 mg/dL (74-106); Lymphocytes 12 % (9-44); Monocytes 8 % (0-8)
[2018-02-03 17:21] LABS: Platelet Estimate Normal (Normal); Platelet Morphology Normal (Normal); RBC Morphology Normal (Normal)
[2018-02-03 17:23] LABS: Alanine Aminotransferase 25 U/L (12-78); Aspartate Aminotransferase 22 U/L (15-37); Glomerular Filtration Rate Greater Than 89 mL/min (>89)
[2018-02-03 17:25] LABS: Total Protein 7.2 g/dL (6.4-8.2)
[2018-02-03 17:26] LABS: Alkaline Phosphatase 174 U/L (45-117); Creatine Kinase 118 U/L (39-308)
[2018-02-03] MEDS ORDERED: dilTIAZem Inj 125 MG in Sodium Chlor 0.9% Inj 100 ML IV.CONT PRN (18:13)
[2018-02-03 18:34] LABS: Bilirubin,Urine Negative (Negative); Clarity,Urine Clear (Clear); Color,Urine Yellow (Yellw/Straw); Glucose,Urine (UA) Negative (Negative); Leukocyte Esterase,Urine Negative (Negative); Nitrite,Urine Negative (Negative); PH,Urine 6.5 (5.0-8.5); Specific Gravity,Urine 1.015 (1.002-1.035); Urobilinogen,Urine 0.2 mg/dL (Less than 2)
[2018-02-03 18:52] LABS: Mucus,Urine Few /lpf (Occasional); RBC,Urine 0-3 /hpf (0-3); Squamous Epithelial Cell,Urine 0-5 /hpf (0-5); WBC,Urine 0-5 /hpf (0-5)
[2018-02-03] MEDS ORDERED: Acetaminophen 325 MG Tablet PO PRN (19:05)
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
[2018-02-03] MEDS: Azithromycin Inj 500 MG in Sodium Chlor 0.9% Inj 250 ML IV.SIG SCH (21:17)
[2018-02-03] MEDS: Senna/Docusate Sodium 8.6/50 MG Tablet PO SCH (23:36)
[2018-02-04] MEDS ORDERED: Metoprolol Inj 5 MG/5 ML Vial IV.PUSH ONE (02:21)
[2018-02-04] MEDS: Chlorhexidine Gluconate 2% 1 Pack (2 Cloths) TOPICAL SCH (03:03)
[2018-02-04] MEDS ORDERED: Chlorhexidine Gluconate 2% 1 Pack (2 Cloths) TOPICAL PRN (04:00)
--- NOTE | 2018-02-04 07:53 | P.PNIM ---
Subjective Interval history: Mr. Ca was afebrile with stable vital signs overnight; HR improved to 90's on Cardizem drip patient states that he is doing well at this time. No reported shortness of breath; he feels better since rate controlled. No chest pain; no urinary abnormalities. Patient reports loose bowel movement this morning. Nursing staff brought concern of patient's slurred speech. In discussing this further, patient states that he has had abnormal speech for several months but is not sure why. He is agreeable to further evaluation with head CT. Physical Exam Vital signs: Vital Signs 02/03/18 15:31 02/03/18 16:45 02/03/18 16:46 Temperature 98.1 F Pulse Rate 146 H 95 H 99 H Respiratory Rate 18 18 Blood Pressure 117/75 136/74 Pulse Oximetry 95 97 02/03/18 18:01 02/03/18 19:50 02/03/18 21:22 Temperature 97.6 F Pulse Rate 86 130 H 95 H Respiratory Rate 18 20 18 Blood Pressure 128/79 101/62 108/53 L Pulse Oximetry 97 02/03/18 21:35 02/03/18 21:50 02/03/18 22:00 Temperature 98 F Pulse Rate 90 96 H Respiratory Rate 18 37 H 31 H Blood Pressure 117/62 105/84 Pulse Oximetry 100 94 L 02/03/18 22:09 02/03/18 23:00 02/04/18 00:00 Temperature 97.3 F L Pulse Rate 88 64 90 Respiratory Rate 25 H 18 Blood Pressure 123/66 119/64 Pulse Oximetry 96 94 L 02/04/18 00:07 02/04/18 00:44 02/04/18 01:00 Temperature 98.1 F Pulse Rate 72 86 Respiratory Rate 19 Blood Pressure 119/64 Pulse Oximetry 95 95 02/04/18 01:35 02/04/18 02:00 02/04/18 04:00 Temperature 99.2 F Pulse Rate 113 H 102 H Respiratory Rate 20 Blood Pressure 127/72 Pulse Oximetry 98 96 02/04/18 06:00 Temperature Pulse Rate 98 H Respiratory Rate Blood Pressure Pulse Oximetry Intake & Output 02/03/18 02/04/18 02/04/18 18:59 06:59 18:59 Intake Total 403 / 403 Output Total 200 / 200 Balance -200 / -200 403 / 403 Weight 54.9 kg 53.2 kg Intake: IV 403 / 403 Cardizem Inj 125 MG In NS Inj 53 / 53 100 ML @ 5 MG/HR 5 mls/hr IV. CONT TITRATE PRN Rx#:[id number] Azithromycin Inj 500 MG In NS 250 / 250 Inj 250 ML @ 250 mls/hr IV.SIG Q24H KARI Rx#:[id number] Rocephin Inj 1,000 MG In NS Inj 100 / 100 100 ML @ 200 mls/hr IV.SIG Q24H KARI Rx#:[id number] Output: Urine 200 / 200 Other: # Voids 2 Weight On Admission 53.3 kg Narrative: General: No acute distress; gaunt in appearance Eyes: EOM grossly I HENT: Normal mucus membranes Skin: No visible lesions CV:Irregular rhythm; normal rate in 90's; normal perfusion Resp: CTAB; decreased breath sounds, normal rate Abdomen: Normal BS. No pain to palpation Ext: Grossly normal ROM and motor function Neuro: Awake/alert. Grossly normal CN. Grossly normal peripheral motor/sensory function Results - Labs CBC & Chem 7: 02/03/18 15:55 02/03/18 15:55 Laboratory Results - last 24 hr 02/03/18 02/03/18 02/03/18 15:55 15:55 15:55 CBC w Diff Slide review pending WBC 11.9 H RBC 3.93 L Hgb 11.5 L Hct 34.9 L MCV 88.9 MCH 29.2 MCHC 32.9 RDW 15.5 Plt Count 475 H MPV 8.8 Neut % (Auto) 74.4 H Lymph % (Auto) 7.0 L [place] % (Auto) 9.7 H Eos % (Auto) 8.1 H Baso % (Auto) 0.8 Neut # (Auto) 8.8 H Lymph # (Auto) 0.8 L [place] # (Auto) 1.2 H Eos # (Auto) 1.0 H Baso # (Auto) 0.1 WBC Differential Manual diff final Seg Neuts % (Manual) 61 Band Neuts % (Manual) 8 H Lymphocytes % (Manual) 12 Monocytes % (Manual) 8 Eosinophils % (Manual) 10 H Basophils % (Manual) 1 Abs Neuts (Manual) 8.2 H Differential Comment . Platelet Estimate Normal Platelet Morphology Normal RBC Morphology Normal PT 13.9 H INR 1.4 APTT 33.7 H Sodium Potassium Chloride Carbon Dioxide Anion Gap BUN Creatinine Estimated GFR Random Glucose Calcium Total Bilirubin AST ALT Alkaline Phosphatase Total Creatine Kinase CK-MB (CK-2) Troponin I B-Natriuretic Peptide 168 H Total Protein Albumin TSH Urine Color Urine Clarity Urine pH Ur Specific [place] Urine Protein Urine Glucose (UA) Urine Ketones Urine Occult Blood Urine Nitrate Urine Bilirubin Urine Urobilinogen Ur Leukocyte Esterase Urine RBC Urine WBC Ur Squamous Epith Cells Urine Mucus Micro UA Comment Ur Microscopic Review Urine Culture Comments Digoxin 02/03/18 02/03/18 02/03/18 15:55 15:55 18:20 CBC w Diff WBC RBC Hgb Hct MCV MCH MCHC RDW Plt Count MPV Neut % (Auto) Lymph % (Auto) [place] % (Auto) Eos % (Auto) Baso % (Auto) Neut # (Auto) Lymph # (Auto) [place] # (Auto) Eos # (Auto) Baso # (Auto) WBC Differential Seg Neuts % (Manual) Band Neuts % (Manual) Lymphocytes % (Manual) Monocytes % (Manual) Eosinophils % (Manual) Basophils % (Manual) Abs Neuts (Manual) Differential Comment Platelet Estimate Platelet Morphology RBC Morphology PT INR APTT Sodium 139 Potassium 4.0 Chloride 103 Carbon Dioxide 27.8 Anion Gap 8 BUN 18 Creatinine 0.76 Estimated GFR Greater than 89 Random Glucose 90 Calcium 8.6 Total Bilirubin 0.3 AST 22 ALT 25 Alkaline Phosphatase 174 H Total Creatine Kinase 118 CK-MB (CK-2) Less than 1.0 Troponin I Less than 0.02 L B-Natriuretic Peptide Total Protein 7.2 Albumin 2.4 L TSH Urine Color Yellow Urine Clarity Clear Urine pH 6.5 Ur Specific [place] 1.015 Urine Protein Negative Urine Glucose (UA) Negative Urine Ketones Trace H Urine Occult Blood Negative Urine Nitrate Negative Urine Bilirubin Negative Urine Urobilinogen 0.2 Ur Leukocyte Esterase Negative Urine RBC 0-3 Urine WBC 0-5 Ur Squamous Epith Cells 0-5 Urine Mucus Few H Micro UA Comment Culture not ind Ur Microscopic Review Microscopic reviewed Urine Culture Comments Culture not ind Digoxin 0.7 L 02/04/18 04:25 CBC w Diff WBC RBC Hgb Hct MCV MCH MCHC RDW Plt Count MPV Neut % (Auto) Lymph % (Auto) [place] % (Auto) Eos % (Auto) Baso % (Auto) Neut # (Auto) Lymph # (Auto) [place] # (Auto) Eos # (Auto) Baso # (Auto) WBC Differential Seg Neuts % (Manual) Band Neuts % (Manual) Lymphocytes % (Manual) Monocytes % (Manual) Eosinophils % (Manual) Basophils % (Manual) Abs Neuts (Manual) Differential Comment Platelet Estimate Platelet Morphology RBC Morphology PT INR APTT Sodium Potassium Chloride Carbon Dioxide Anion Gap BUN Creatinine Estimated GFR Random Glucose Calcium Total Bilirubin AST ALT Alkaline Phosphatase Total Creatine Kinase CK-MB (CK-2) Troponin I B-Natriuretic Peptide Total Protein Albumin TSH 1.760 Urine Color Urine Clarity Urine pH Ur Specific [place] Urine Protein Urine Glucose (UA) Urine Ketones Urine Occult Blood Urine Nitrate Urine Bilirubin Urine Urobilinogen Ur Leukocyte Esterase Urine RBC Urine WBC Ur Squamous Epith Cells Urine Mucus Micro UA Comment Ur Microscopic Review Urine Culture Comments Digoxin - Imaging Impressions Chest X-Ray 02/03/18 16:32 CONCLUSION: Right mid and lower lobe consolidation with small right effusion. Assessment and Plan - Assessment (1) Weight loss Code(s): R63.4 - Abnormal weight loss Status: Acute (2) Atrial fibrillation with RVR Code(s): I48.91 - Unspecified atrial fibrillation Status: Acute (3) Cough Code(s): R05 - Cough Status: Acute - Plan Mr. Ca is a 72 yo M with: Atrial fibrillation with RVR Impression: HR on admission 110's-130's. Atrial fibrillation controlled as outpatient with Metoprolol 25mg ER, Digoxin 0.125mg daily, and Xarelto 20mg daily Labs on admission: -Cardiology consulted -Continue rate control -Continue Digoxin 0.125mg daily -Will stop Cardizem and give Metoprolol ER 50mg oral -Continue Xarelto 20mg daily for anticoagulation Cough Impression: 2 weeks duration in association with history of tobacco abuse and weight loss CXR on admission with right mid and lower lobe consolidation and small R effusion Labs: WBC 11.9 with 74.4% neutrophils -Will empirically treat for CAP with Rocephin and Azithromycin -Will check blood and sputum cultures -Since subacute cough, recent weight loss, and tobacco abuse and has not had prior screening, will evaluate RLL consolidation further with CT chest Weight loss -Will give nutritional supplementation and consult dietary during admission Slurred speech Impression: Chronic for several mo. Afib as risk factor -Since CVA risks, will check head CT DVT PPX -Continue Xarelto Code Status: Full code
--- NOTE | 2018-02-04 07:54 | ECG ---
Date Performed: 02/03/2018 Time Performed: 15:42:34 PTAGE: 72 years EKG: ATRIAL FIBRILLATION WITH RAPID VENTRICULAR RESPONSE LOW QRS VOLTAGE IN EXTREMITY LEADS ANTE ROLATERAL MYOCARDIAL INFARCTION ABNORMAL ECG PREVIOUS TRACING : 08/04/2017 09.58 Since the previous tracing, no significant change noted DOCTOR: Francisco J Negro Interpretating Date/Time 02/04/2018 07:52:20
[2018-02-04] MEDS: Digoxin 125 MCG Tablet PO SCH (08:06)
[2018-02-04] MEDS: Rivaroxaban 20 MG Tablet PO SCH (08:06)
[2018-02-04] MEDS: Senna/Docusate Sodium 8.6/50 MG Tablet PO SCH ×2 (08:06→22:49)
[2018-02-04] MEDS: Metoprolol Tartrate 25 MG Tablet PO PRN (17:01)
[2018-02-04] MEDS: Azithromycin Inj 500 MG in Sodium Chlor 0.9% Inj 250 ML IV.SIG SCH (22:47)
[2018-02-05] MEDS: Metoprolol Tartrate 25 MG Tablet PO PRN (03:29)
[2018-02-05] MEDS: Chlorhexidine Gluconate 2% 1 Pack (2 Cloths) TOPICAL SCH (04:48)
[2018-02-05 06:54] LABS: Chloride 103 meq/L (98-107); Potassium 3.9 meq/L (3.5-5.1); Sodium 140 meq/L (136-145)
[2018-02-05 06:55] LABS: Baso # (Auto) 0.2 th/mm3 (0.0-0.2); Baso % (Auto) 1.4 % (0.0-2.0); Eos # (Auto) 1.2 th/mm3 (0.0-0.4); Eos % (Auto) 9.4 % (0.0-4.0); Hematocrit 36.7 % (39.0-51.0); Lymph # (Auto) 0.8 th/mm3 (1.0-4.8); Lymph % (Auto) 6.1 % (9.0-44.0); Mean Corpuscular HGB Conc 32.7 % (32.0-36.0); Mean Corpuscular Hemoglobin 29.7 pg (27.0-34.0); Mean Corpuscular Volume 90.8 fL (80.0-100.0); Mean Platelet Volume 8.8 fL (7.0-11.0); Mono # (Auto) 1.3 th/mm3 (0.0-0.9); Mono % (Auto) 10.1 % (0.0-8.0); Neut # (Auto) 9.2 th/mm3 (1.8-7.7); Platelet Count 447 th/mm3 (150-450); Red Blood Count 4.05 mil/mm3 (4.50-5.90); Red Cell Distribution Width 14.7 % (11.6-17.2); White Blood Count 12.7 th/mm3 (4.0-11.0)
[2018-02-05 06:57] LABS: Calcium 8.1 mg/dL (8.5-10.1)
[2018-02-05 06:58] LABS: Albumin 2.3 g/dL (3.4-5.0); Anion Gap 8 meq/L (5-15); Blood Urea Nitrogen 15 mg/dL (7-18); Carbon Dioxide 29.1 meq/L (21.0-32.0); Glucose,Random 101 mg/dL (74-106)
[2018-02-05 07:01] LABS: Alanine Aminotransferase 23 U/L (12-78); Aspartate Aminotransferase 22 U/L (15-37); Glomerular Filtration Rate Greater Than 89 mL/min (>89)
[2018-02-05 07:03] LABS: Total Protein 6.9 g/dL (6.4-8.2)
[2018-02-05 07:04] LABS: Alkaline Phosphatase 169 U/L (45-117)
[2018-02-05 07:18] LABS: Eosinophils 6 % (0-4); Lymphocytes 7 % (9-44); Monocytes 8 % (0-8); Platelet Estimate Normal (Normal); Platelet Morphology Normal (Normal); RBC Morphology Normal (Normal)
[2018-02-05] MEDS: Enoxaparin Inj 60 MG/0.6 ML Syringe SQ SCH (08:28)
[2018-02-05] MEDS: Digoxin 125 MCG Tablet PO SCH (08:28)
[2018-02-05] MEDS: Senna/Docusate Sodium 8.6/50 MG Tablet PO SCH ×2 (08:29→21:09)
[2018-02-05] MEDS ORDERED: Metoprolol Inj 5 MG/5 ML Vial IV.PUSH PRN (09:59)
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
--- NOTE | 2018-02-05 11:13 | P.PNIM ---
Subjective Interval history: Mr. Ca was afebrile with intermittent tachycardia to low 100's overnight. Patient seen in the company of his today; they report some continued anxiety regarding concern of pulmonary cancer. Patient requests better heart rate control prior to bronchoscopy. Patient reports that he is doing ok but has no significant appetite. Patient's has been trying to encourage oral intake but patient is not hungry. P Physical Exam Vital signs: Vital Signs 02/04/18 11:18 02/04/18 12:00 02/04/18 13:00 Temperature 98.5 F Pulse Rate 102 H 86 98 H Respiratory Rate 25 H 21 17 Blood Pressure 128/75 Pulse Oximetry 93 L 97 91 L 02/04/18 14:00 02/04/18 14:04 02/04/18 15:00 Temperature Pulse Rate 89 114 H Respiratory Rate 21 Blood Pressure Pulse Oximetry 95 95 02/04/18 16:00 02/04/18 17:00 02/04/18 18:00 Temperature Pulse Rate 102 H 116 H 106 H Respiratory Rate 23 21 23 Blood Pressure Pulse Oximetry 95 94 L 94 L 02/04/18 19:00 02/04/18 19:30 02/04/18 20:00 Temperature 97.6 F Pulse Rate 114 H 120 H Respiratory Rate 26 H Blood Pressure 117/64 130/80 Pulse Oximetry 97 93 L 96 02/04/18 21:00 02/04/18 22:00 02/04/18 23:00 Temperature Pulse Rate 126 H 105 H 108 H Respiratory Rate 21 20 22 Blood Pressure 144/89 H 125/84 124/80 Pulse Oximetry 90 L 97 96 02/05/18 00:00 02/05/18 01:07 02/05/18 02:00 Temperature 97.8 F Pulse Rate 112 H 116 H 114 H Respiratory Rate 20 27 H 15 Blood Pressure 116/79 138/85 100/76 Pulse Oximetry 94 L 89 L 94 L 02/05/18 03:00 02/05/18 04:00 02/05/18 06:00 Temperature 98.1 F Pulse Rate 140 H 109 H 103 H Respiratory Rate 20 20 20 Blood Pressure 121/84 131/93 H 118/79 Pulse Oximetry 97 92 L 96 02/05/18 07:30 02/05/18 08:00 Temperature 97.8 F Pulse Rate 147 H Respiratory Rate 24 Blood Pressure 112/84 Pulse Oximetry 96 94 L Intake & Output 02/04/18 02/05/18 02/05/18 18:59 06:59 18:59 Intake Total 860 / 860 350 / 350 Output Total 600 / 600 400 / 400 250 / 250 Balance 260 / 260 -50 / -50 -250 / -250 Weight 53.9 kg Intake: IV 350 / 350 Azithromycin Inj 500 MG In NS 250 / 250 Inj 250 ML @ 250 mls/hr IV.SIG Q24H [facility] Rx#:[id number] Rocephin Inj 1,000 MG In NS Inj 100 / 100 100 ML @ 200 mls/hr IV.SIG Q24H [facility] Rx#:[id number] Oral 860 / 860 Output: Urine 600 / 600 400 / 400 250 / 250 Other: # Voids 4 Date of Last Bowel Movement 02/04/18 02/05/18 # Bowel Movements 1 Narrative: General: No acute distress; gaunt in appearance Eyes: EOM grossly I HENT: Normal mucus membranes Skin: No visible lesions CV:Irregular rhythm; rate in low 100's; normal perfusion Resp: mild wheezing, decreased breath sounds, normal rate Abdomen: Normal BS. No pain to palpation Ext: Grossly normal ROM and motor function Neuro: Awake/alert. Grossly normal CN. Grossly normal peripheral motor/sensory function Results - Labs CBC & Chem 7: 02/05/18 05:55 02/05/18 05:55 Laboratory Results - last 24 hr 02/05/18 02/05/18 05:55 05:55 CBC w Diff Slide review pending WBC 12.7 H RBC 4.05 L Hgb 12.0 L Hct 36.7 L MCV 90.8 MCH 29.7 MCHC 32.7 RDW 14.7 Plt Count 447 MPV 8.8 Neut % (Auto) 73.0 H Lymph % (Auto) 6.1 L [place] % (Auto) 10.1 H Eos % (Auto) 9.4 H Baso % (Auto) 1.4 Neut # (Auto) 9.2 H Lymph # (Auto) 0.8 L [place] # (Auto) 1.3 H Eos # (Auto) 1.2 H Baso # (Auto) 0.2 WBC Differential Manual diff final Seg Neuts % (Manual) 63 Band Neuts % (Manual) 14 H Lymphocytes % (Manual) 7 L Monocytes % (Manual) 8 Eosinophils % (Manual) 6 H Basophils % (Manual) 2 Abs Neuts (Manual) 9.8 H Differential Comment . Platelet Estimate Normal Platelet Morphology Normal RBC Morphology Normal Sodium 140 Potassium 3.9 Chloride 103 Carbon Dioxide 29.1 Anion Gap 8 BUN 15 Creatinine 0.67 Estimated GFR Greater than 89 Random Glucose 101 Calcium 8.1 L Total Bilirubin 0.3 AST 22 ALT 23 Alkaline Phosphatase 169 H Total Protein 6.9 Albumin 2.3 L Microbiology 02/03/18 21:00 Blood - Peripheral Aerobic Blood Culture - Preliminary No growth in 2 days 02/03/18 21:00 Blood - Peripheral Anaerobic Blood Culture - Preliminary No growth in 2 days 02/03/18 21:10 Blood - Peripheral Aerobic Blood Culture - Preliminary No growth in 2 days 02/03/18 21:10 Blood - Peripheral Anaerobic Blood Culture - Preliminary No growth in 2 days Assessment and Plan - Assessment (1) Weight loss Code(s): R63.4 - Abnormal weight loss Status: Acute (2) Atrial fibrillation with RVR Code(s): I48.91 - Unspecified atrial fibrillation Status: Acute (3) Cough Code(s): R05 - Cough Status: Acute - Plan Mr. Ca is a 72 yo M with: Atrial fibrillation with RVR Impression: HR on admission 110's-130's. Atrial fibrillation controlled as outpatient with Metoprolol 25mg ER, Digoxin 0.125mg daily, and Xarelto 20mg daily Labs on admission: -Cardiology consulted -Continue rate control -Continue Digoxin 0.125mg daily -Stopped Cardizem -Will increase Metoprolol ER to 62.5mg oral -Xarelto held for upcoming bronchoscopy; will plan to give Lovenox until night of procedure Pulmonary Cough Impression: 2 weeks duration in association with history of tobacco abuse and weight loss CXR on admission with right mid and lower lobe consolidation and small R effusion Labs: WBC 11.9 with 74.4% neutrophils on admission; persistent leukocytosis Chest CT obtained due to weight loss and lack of prior screening- concerning- large right basilar opacity concerning for mass/consolidating airspace disease/ pleural effusion; endobronchial mass involving R bronchus, small spiculated ANGELLA mass and pleural nodules. COPD -Will empirically treat for CAP with Rocephin and Azithromycin - blood and sputum cultures pending -Concern for lung cancer -Hematology consulted -endobronchial evaluation -CT of chest/abdomen/pelvis vs PET/CT body advised -Pulmonology consulted -Plan for biopsy Wednesday -Continue Rocephin/Azithro -Lovenox bridge prior biopsy if cleared by Cardiology Weight loss -Will give nutritional supplementation and consult dietary during admission Slurred speech Impression: Chronic for several mo. Afib as risk factor Head CT negative DVT PPX -Continue Lovenox; Xarelto held Code Status: Full code
--- NOTE | 2018-02-05 18:33 | P.PN ---
Subjective Interval history: He is still in Atrial Fib with a rapid ventricular rate Off O2. Off Xarelto and on Lovenox.No SOB Physical Exam Vital signs: Vital Signs 02/04/18 19:00 02/04/18 19:30 02/04/18 20:00 Temperature 97.6 F Pulse Rate 114 H 120 H Respiratory Rate 26 H Blood Pressure 117/64 130/80 Pulse Oximetry 97 93 L 96 02/04/18 21:00 02/04/18 22:00 02/04/18 23:00 Temperature Pulse Rate 126 H 105 H 108 H Respiratory Rate 21 20 22 Blood Pressure 144/89 H 125/84 124/80 Pulse Oximetry 90 L 97 96 02/05/18 00:00 02/05/18 01:07 02/05/18 02:00 Temperature 97.8 F Pulse Rate 112 H 116 H 114 H Respiratory Rate 20 27 H 15 Blood Pressure 116/79 138/85 100/76 Pulse Oximetry 94 L 89 L 94 L 02/05/18 03:00 02/05/18 04:00 02/05/18 06:00 Temperature 98.1 F Pulse Rate 140 H 109 H 103 H Respiratory Rate 20 20 20 Blood Pressure 121/84 131/93 H 118/79 Pulse Oximetry 97 92 L 96 02/05/18 07:30 02/05/18 08:00 02/05/18 09:00 Temperature 97.8 F Pulse Rate 134 H 128 H Respiratory Rate 24 25 H Blood Pressure 112/84 122/74 Pulse Oximetry 96 98 94 L 02/05/18 10:00 02/05/18 11:00 02/05/18 12:00 Temperature Pulse Rate 92 H 130 H 112 H Respiratory Rate 15 22 22 Blood Pressure 112/69 114/78 93/68 L Pulse Oximetry 94 L 96 94 L 02/05/18 13:00 02/05/18 14:00 02/05/18 14:34 Temperature Pulse Rate 106 H 114 H 112 H Respiratory Rate 25 H 22 20 Blood Pressure 116/78 118/73 Pulse Oximetry 96 94 L 02/05/18 15:00 02/05/18 16:00 02/05/18 17:00 Temperature Pulse Rate 128 H 106 H 110 H Respiratory Rate 25 H 16 23 Blood Pressure 100/68 111/63 104/75 Pulse Oximetry 93 L 94 L 92 L 02/05/18 17:20 Temperature 98.7 F Pulse Rate Respiratory Rate Blood Pressure Pulse Oximetry Intake & Output 02/04/18 02/05/18 02/05/18 18:59 06:59 18:59 Intake Total 860 / 860 350 / 350 Output Total 600 / 600 400 / 400 250 / 250 Balance 260 / 260 -50 / -50 -250 / -250 Weight 53.9 kg Intake: IV 0 / 0 350 / 350 Azithromycin Inj 500 MG In NS 250 / 250 Inj 250 ML @ 250 mls/hr IV.SIG Q24H [facility] Rx#:[id number] Rocephin Inj 1,000 MG In NS Inj 100 / 100 100 ML @ 200 mls/hr IV.SIG Q24H [facility] Rx#:[id number] Oral 860 / 860 Output: Urine 600 / 600 400 / 400 250 / 250 Other: # Voids 4 Date of Last Bowel Movement 02/04/18 02/05/18 02/04/18 # Bowel Movements 1 Narrative: Elderly male, sitting up in bedside chair, is cachectic, he is awake, alert and oriented. He appears to be no acute distress. GENERAL: SKIN: Warm and dry. HEAD: Normocephalic. EYES: No scleral icterus. No injection or drainage. NECK: Supple, trachea midline. No JVD or lymphadenopathy. CARDIOVASCULAR: Irregularly Irregular rate and rhythm without murmurs, or rubs. RESPIRATORY: Breath sounds decreased at right base and diffuse wheeze heard.. No accessory muscle use. GASTROINTESTINAL: Abdomen soft, non-tender, nondistended. MUSCULOSKELETAL: No cyanosis, or edema. Neuro : No gross deficits BACK: Nontender without obvious deformity. No CVA tenderness. Results - Labs CBC & Chem 7: 02/05/18 05:55 02/05/18 05:55 Laboratory Results - last 24 hr 02/05/18 02/05/18 05:55 05:55 CBC w Diff Slide review pending WBC 12.7 H RBC 4.05 L Hgb 12.0 L Hct 36.7 L MCV 90.8 MCH 29.7 MCHC 32.7 RDW 14.7 Plt Count 447 MPV 8.8 Neut % (Auto) 73.0 H Lymph % (Auto) 6.1 L [place] % (Auto) 10.1 H Eos % (Auto) 9.4 H Baso % (Auto) 1.4 Neut # (Auto) 9.2 H Lymph # (Auto) 0.8 L [place] # (Auto) 1.3 H Eos # (Auto) 1.2 H Baso # (Auto) 0.2 WBC Differential Manual diff final Seg Neuts % (Manual) 63 Band Neuts % (Manual) 14 H Lymphocytes % (Manual) 7 L Monocytes % (Manual) 8 Eosinophils % (Manual) 6 H Basophils % (Manual) 2 Abs Neuts (Manual) 9.8 H Differential Comment . Platelet Estimate Normal Platelet Morphology Normal RBC Morphology Normal Sodium 140 Potassium 3.9 Chloride 103 Carbon Dioxide 29.1 Anion Gap 8 BUN 15 Creatinine 0.67 Estimated GFR Greater than 89 Random Glucose 101 Calcium 8.1 L Total Bilirubin 0.3 AST 22 ALT 23 Alkaline Phosphatase 169 H Total Protein 6.9 Albumin 2.3 L Microbiology 02/03/18 21:00 Blood - Peripheral Aerobic Blood Culture - Preliminary No growth in 2 days 02/03/18 21:00 Blood - Peripheral Anaerobic Blood Culture - Preliminary No growth in 2 days 02/03/18 21:10 Blood - Peripheral Aerobic Blood Culture - Preliminary No growth in 2 days 02/03/18 21:10 Blood - Peripheral Anaerobic Blood Culture - Preliminary No growth in 2 days Assessment and Plan - Assessment (1) Pneumonia Code(s): J18.9 - Pneumonia, unspecified organism Status: Acute (2) Mass of lung parenchyma Code(s): R91.8 - Other nonspecific abnormal finding of lung field Status: Acute (3) COPD (chronic obstructive pulmonary disease) Code(s): J44.9 - Chronic obstructive pulmonary disease, unspecified Status: Acute (4) Atrial fibrillation with RVR Code(s): I48.91 - Unspecified atrial fibrillation Status: Acute (5) Weight loss Code(s): R63.4 - Abnormal weight loss Status: Acute (6) Cough Code(s): R05 - Cough Status: Acute - Plan 1. Will schedule Bronchoscopy on Wednesday . risks were discussed including Bleeding , Pneumothorax and respiratory failure. Need Cardiology to clear him 2. Continue antibiotics , Rocephin, Zithro 3. Duonebs tid PRN 4. Continue O2 2L PRN 5. Hold Lovenox on Wednesday. 6. CBC Coag Profile on Wednesday
[2018-02-05] MEDS: Azithromycin Inj 500 MG in Sodium Chlor 0.9% Inj 250 ML IV.SIG SCH (21:09)
[2018-02-06] MEDS: Chlorhexidine Gluconate 2% 1 Pack (2 Cloths) TOPICAL SCH (04:21)
[2018-02-06] MEDS: Metoprolol Inj 5 MG/5 ML Vial IV.PUSH PRN ×2 (04:21→09:44)
[2018-02-06] MEDS: Digoxin 125 MCG Tablet PO SCH (08:37)
[2018-02-06] MEDS: Senna/Docusate Sodium 8.6/50 MG Tablet PO SCH ×2 (08:39→22:47)
--- NOTE | 2018-02-06 11:30 | P.PNIM ---
Subjective Interval history: Per nursing staff and medical team, Mr. Ca went into RVR this morning with HR ~150 and BP with SBP 89. In response to this, patient was given Lopressor 5mg IV which improved her HR to ~110bpm and BP improved. Patient reports that he is doing ok at this time; he is concerned regarding his rapid heart rate and whether this makes bronchoscopy unsafe. Patient accompanied by his who is also concerned and states that she does not want consent for surgery unless she is involved and heart rate is stable. Patient/ reassured that bronchoscopy would be performed if patient had improved/ stable heart rate. Patient otherwise has been doing ok; he has not been eating much but is trying to increase his diet. No urinary or bowel problems. Physical Exam Vital signs: Vital Signs 02/05/18 12:00 02/05/18 13:00 02/05/18 14:00 Temperature Pulse Rate 112 H 106 H 114 H Respiratory Rate 22 25 H 22 Blood Pressure 93/68 L 116/78 118/73 Pulse Oximetry 94 L 96 94 L 02/05/18 14:34 02/05/18 15:00 02/05/18 16:00 Temperature Pulse Rate 112 H 128 H 106 H Respiratory Rate 20 25 H 16 Blood Pressure 100/68 111/63 Pulse Oximetry 93 L 94 L 02/05/18 17:00 02/05/18 17:20 02/05/18 18:00 Temperature 98.7 F Pulse Rate 110 H 134 H Respiratory Rate 23 30 H Blood Pressure 104/75 109/80 Pulse Oximetry 92 L 92 L 02/05/18 19:00 02/05/18 20:00 02/05/18 20:15 Temperature Pulse Rate 102 H 108 H Respiratory Rate 20 21 Blood Pressure 95/50 L 102/78 Pulse Oximetry 94 L 98 94 L 02/05/18 21:00 02/05/18 22:00 02/05/18 23:00 Temperature Pulse Rate 118 H 114 H 100 H Respiratory Rate 20 20 20 Blood Pressure 99/65 L 103/64 109/73 Pulse Oximetry 98 96 94 L 02/06/18 00:00 02/06/18 01:00 02/06/18 02:00 Temperature 97.2 F L Pulse Rate 114 H 107 H 110 H Respiratory Rate 20 20 20 Blood Pressure 114/74 122/72 112/77 Pulse Oximetry 93 L 02/06/18 04:00 02/06/18 05:00 02/06/18 06:00 Temperature 98.4 F Pulse Rate 110 H 100 H 91 H Respiratory Rate 23 20 20 Blood Pressure 117/83 119/72 115/82 Pulse Oximetry 92 L 96 95 02/06/18 07:00 02/06/18 08:00 02/06/18 08:05 Temperature Pulse Rate 118 H 107 H 163 H Respiratory Rate 20 23 Blood Pressure 113/71 115/85 Pulse Oximetry 92 L 93 L 02/06/18 09:00 02/06/18 09:15 02/06/18 09:18 Temperature Pulse Rate 170 H 157 H 166 H Respiratory Rate 22 Blood Pressure 96/72 L Pulse Oximetry 97 02/06/18 09:25 02/06/18 09:29 02/06/18 09:35 Temperature Pulse Rate 132 H 149 H 162 H Respiratory Rate 27 H 24 25 H Blood Pressure 85/59 L 74/64 L 88/60 L Pulse Oximetry 97 97 97 02/06/18 10:00 02/06/18 10:04 02/06/18 10:09 Temperature Pulse Rate 100 H 110 H 108 H Respiratory Rate 24 23 23 Blood Pressure 80/72 L 72/56 L 87/61 L Pulse Oximetry 96 96 87 L 02/06/18 10:14 02/06/18 10:19 02/06/18 10:24 Temperature Pulse Rate 102 H 104 H 106 H Respiratory Rate 22 25 H 23 Blood Pressure 95/61 L 98/63 L 95/62 L Pulse Oximetry 94 L 93 L 96 02/06/18 10:29 Temperature Pulse Rate 106 H Respiratory Rate 22 Blood Pressure 106/66 Pulse Oximetry 97 Intake & Output 02/05/18 02/06/18 02/06/18 18:59 06:59 18:59 Intake Total 960 / 960 350 / 350 Output Total 400 / 400 Balance 560 / 560 350 / 350 Weight 53.4 kg Intake: IV 350 / 350 Azithromycin Inj 500 MG In NS 250 / 250 Inj 250 ML @ 250 mls/hr IV.SIG Q24H [facility]I Rx#:[id number] Rocephin Inj 1,000 MG In NS Inj 100 / 100 100 ML @ 200 mls/hr IV.SIG Q24H [facility]I Rx#:[id number] Oral 960 / 960 Output: Urine 400 / 400 Other: Post Void Residual 500 Date of Last Bowel Movement 02/04/18 02/06/18 # Bowel Movements 2 Narrative: General:Elderly W/m pale in No acute distress Eyes: EOM grossly I HENT: Normal mucus membranes Skin: No visible lesions CV:Irregular rhythm; No Murmur. Resp: mild wheezing, decreased breath sounds, normal rate Abdomen: Normal BS. No pain to palpation Ext: Grossly normal ROM and motor function Neuro: Awake/alert. Grossly normal CN. Grossly normal peripheral motor/sensory function Results - Labs CBC & Chem 7: 02/06/18 11:48 02/06/18 11:48 Microbiology 02/03/18 21:00 Blood - Peripheral Aerobic Blood Culture - Preliminary No growth in 3 days 02/03/18 21:00 Blood - Peripheral Anaerobic Blood Culture - Preliminary No growth in 3 days 02/03/18 21:10 Blood - Peripheral Aerobic Blood Culture - Preliminary No growth in 3 days 02/03/18 21:10 Blood - Peripheral Anaerobic Blood Culture - Preliminary No growth in 3 days Assessment and Plan - Assessment (1) Weight loss Code(s): R63.4 - Abnormal weight loss Status: Acute (2) Atrial fibrillation with RVR Code(s): I48.91 - Unspecified atrial fibrillation Status: Acute (3) Cough Code(s): R05 - Cough Status: Acute - Plan Mr. Ca is a 72 yo M with: Atrial fibrillation with RVR Impression: HR on admission 110's-130's. Atrial fibrillation controlled as outpatient with Metoprolol 25mg ER, Digoxin 0.125mg daily, and Xarelto 20mg daily 02/06- RVR this morning; improved with Lopressor 5mg IV -Cardiology consulted -Discussed with Cardiology; will resume Diltiazem 60mg q6 hrs with plan to switch to 240mg ER tomorrow morning -Continue Digoxin 0.125mg -Xarelto held for upcoming bronchoscopy; Lovenox held in case of bronchoscopy tomorrow. Due to anxiety per patient/ about possibility of biopsy while Afib not controlled; will await their consent once reassured of stable HR Pulmonary Cough Impression: 2 weeks duration in association with history of tobacco abuse and weight loss CXR on admission with right mid and lower lobe consolidation and small R effusion Labs: WBC 11.9 with 74.4% neutrophils on admission; persistent leukocytosis Chest CT obtained due to weight loss and lack of prior screening- concerning- large right basilar opacity concerning for mass/consolidating airspace disease/ pleural effusion; endobronchial mass involving R bronchus, small spiculated ANGELLA mass and pleural nodules. COPD -Will empirically treat for CAP with Rocephin and Azithromycin - blood and sputum cultures pending -Concern for lung cancer -Hematology consulted -endobronchial evaluation -CT of chest/abdomen/pelvis vs PET/CT body advised as outpatient -Pulmonology consulted -Plan for biopsy Wednesday vs Wednesday pending HR and patient/'s approval -Continue Rocephin/Azithro -Lovenox bridge Weight loss -Will give nutritional supplementation -Dietary consulted Slurred speech Impression: Chronic for several mo. Afib as risk factor Head CT negative DVT PPX - Lovenox bridge held in case of bronchoscopy tomorrow vs Wednesday Xarelto held Code Status: Full code
[2018-02-06 11:58] LABS: Baso # (Auto) 0.6 th/mm3 (0.0-0.2); Baso % (Auto) 4.6 % (0.0-2.0); Eos # (Auto) 1.1 th/mm3 (0.0-0.4); Eos % (Auto) 9.1 % (0.0-4.0); Hemoglobin 12.4 gm/dL (13.0-17.0); Lymph # (Auto) 0.8 th/mm3 (1.0-4.8); Lymph % (Auto) 6.7 % (9.0-44.0); Mean Corpuscular HGB Conc 32.6 % (32.0-36.0); Mean Corpuscular Hemoglobin 29.6 pg (27.0-34.0); Mean Corpuscular Volume 90.7 fL (80.0-100.0); Mean Platelet Volume 8.1 fL (7.0-11.0); Mono % (Auto) 8.4 % (0.0-8.0); Neut # (Auto) 8.5 th/mm3 (1.8-7.7); Neut % (Auto) 71.2 % (16.0-70.0); Platelet Count 457 th/mm3 (150-450); Red Blood Count 4.19 mil/mm3 (4.50-5.90); Red Cell Distribution Width 14.6 % (11.6-17.2)
[2018-02-06 12:09] LABS: Chloride 104 meq/L (98-107); Potassium 3.9 meq/L (3.5-5.1); Sodium 141 meq/L (136-145)
[2018-02-06 12:11] LABS: Calcium 8.6 mg/dL (8.5-10.1)
[2018-02-06 12:12] LABS: Anion Gap 6 meq/L (5-15); Blood Urea Nitrogen 16 mg/dL (7-18); Carbon Dioxide 31.4 meq/L (21.0-32.0); Glucose,Random 92 mg/dL (74-106)
[2018-02-06 12:15] LABS: Glomerular Filtration Rate Greater Than 89 mL/min (>89)
--- NOTE | 2018-02-06 12:49 | P.PN ---
Subjective Interval history: Feeling ok Physical Exam Vital signs: Vital Signs 02/05/18 13:00 02/05/18 14:00 02/05/18 14:34 Temperature Pulse Rate 106 H 114 H 112 H Respiratory Rate 25 H 22 20 Blood Pressure 116/78 118/73 Pulse Oximetry 96 94 L 02/05/18 15:00 02/05/18 16:00 02/05/18 17:00 Temperature Pulse Rate 128 H 106 H 110 H Respiratory Rate 25 H 16 23 Blood Pressure 100/68 111/63 104/75 Pulse Oximetry 93 L 94 L 92 L 02/05/18 17:20 02/05/18 18:00 02/05/18 19:00 Temperature 98.7 F Pulse Rate 134 H 102 H Respiratory Rate 30 H 20 Blood Pressure 109/80 95/50 L Pulse Oximetry 92 L 94 L 02/05/18 20:00 02/05/18 20:15 02/05/18 21:00 Temperature Pulse Rate 108 H 118 H Respiratory Rate 21 20 Blood Pressure 102/78 99/65 L Pulse Oximetry 98 94 L 98 02/05/18 22:00 02/05/18 23:00 02/06/18 00:00 Temperature 97.2 F L Pulse Rate 114 H 100 H 114 H Respiratory Rate 20 20 20 Blood Pressure 103/64 109/73 114/74 Pulse Oximetry 96 94 L 02/06/18 01:00 02/06/18 02:00 02/06/18 04:00 Temperature 98.4 F Pulse Rate 107 H 110 H 110 H Respiratory Rate 20 20 23 Blood Pressure 122/72 112/77 117/83 Pulse Oximetry 93 L 92 L 02/06/18 05:00 02/06/18 06:00 02/06/18 07:00 Temperature Pulse Rate 100 H 91 H 118 H Respiratory Rate 20 20 20 Blood Pressure 119/72 115/82 113/71 Pulse Oximetry 96 95 92 L 02/06/18 08:00 02/06/18 08:05 02/06/18 09:00 Temperature Pulse Rate 107 H 163 H 170 H Respiratory Rate 23 22 Blood Pressure 115/85 96/72 L Pulse Oximetry 91 L 97 02/06/18 09:15 02/06/18 09:18 02/06/18 09:25 Temperature Pulse Rate 157 H 166 H 132 H Respiratory Rate 27 H Blood Pressure 85/59 L Pulse Oximetry 97 02/06/18 09:29 02/06/18 09:35 02/06/18 10:00 Temperature Pulse Rate 149 H 162 H 100 H Respiratory Rate 24 25 H 24 Blood Pressure 74/64 L 88/60 L 80/72 L Pulse Oximetry 97 97 96 02/06/18 10:04 02/06/18 10:09 02/06/18 10:14 Temperature Pulse Rate 110 H 108 H 102 H Respiratory Rate 23 23 22 Blood Pressure 72/56 L 87/61 L 95/61 L Pulse Oximetry 96 87 L 94 L 02/06/18 10:19 02/06/18 10:24 02/06/18 10:29 Temperature Pulse Rate 104 H 106 H 106 H Respiratory Rate 25 H 23 22 Blood Pressure 98/63 L 95/62 L 106/66 Pulse Oximetry 93 L 96 97 Intake & Output 02/05/18 02/06/18 02/06/18 18:59 06:59 18:59 Intake Total 960 / 960 350 / 350 Output Total 400 / 400 Balance 560 / 560 350 / 350 Weight 53.4 kg Intake: IV 350 / 350 Azithromycin Inj 500 MG In NS 250 / 250 Inj 250 ML @ 250 mls/hr IV.SIG Q24H [facility] Rx#:[id number] Rocephin Inj 1,000 MG In NS Inj 100 / 100 100 ML @ 200 mls/hr IV.SIG Q24H [facility] Rx#:[id number] Oral 960 / 960 Output: Urine 400 / 400 Other: Post Void Residual 500 Date of Last Bowel Movement 02/04/18 02/06/18 02/06/18 # Bowel Movements 2 - Constitutional mild distress - Routine HEENT Exam Head: Present: normocephalic Eye: Present: PERRL ENT: Present: mucous membranes moist - Routine Cardiovascular Exam Present: tachycardia, irregularly irregular - Routine Abdominal Exam Present: soft - Routine Neurological Exam Present: alert, oriented X3 Results - Labs CBC & Chem 7: 02/06/18 11:48 02/06/18 11:48 Laboratory Results - last 24 hr 02/06/18 02/06/18 11:48 11:48 CBC w Diff Auto diff final WBC 12.0 H RBC 4.19 L Hgb 12.4 L Hct 38.0 L MCV 90.7 MCH 29.6 MCHC 32.6 RDW 14.6 Plt Count 457 H MPV 8.1 Neut % (Auto) 71.2 H Lymph % (Auto) 6.7 L [facility] % (Auto) 8.4 H Eos % (Auto) 9.1 H Baso % (Auto) 4.6 H Neut # (Auto) 8.5 H Lymph # (Auto) 0.8 L [facility] # (Auto) 1.0 H Eos # (Auto) 1.1 H Baso # (Auto) 0.6 H WBC Differential . Differential Comment . Sodium 141 Potassium 3.9 Chloride 104 Carbon Dioxide 31.4 Anion Gap 6 BUN 16 Creatinine 0.74 Estimated GFR Greater than 89 Random Glucose 92 Calcium 8.6 Microbiology 02/03/18 21:00 Blood - Peripheral Aerobic Blood Culture - Preliminary No growth in 3 days 02/03/18 21:00 Blood - Peripheral Anaerobic Blood Culture - Preliminary No growth in 3 days 02/03/18 21:10 Blood - Peripheral Aerobic Blood Culture - Preliminary No growth in 3 days 02/03/18 21:10 Blood - Peripheral Anaerobic Blood Culture - Preliminary No growth in 3 days Assessment and Plan - Assessment (1) Atrial fibrillation with RVR Code(s): I48.91 - Unspecified atrial fibrillation Status: Acute Plan: This morning was in Afib w FVR. Case discussed over the phone with Hospitalist . Geo was added. HR look better control Will continue on current meds Follow up Dr Ware in AM (2) Weight loss Code(s): R63.4 - Abnormal weight loss Status: Acute Plan: patient look cachetic. malignancy should be r/o (3) Mass of lung parenchyma Code(s): R91.8 - Other nonspecific abnormal finding of lung field Status: Acute - Plan Code Status: I did have a phone conversation with patient's . She is very anxious. She is concerned patient may not survive lungs biopsy. I explain to her HR control. Complication is a possibility with any procedure. The pulmonary MD is very careful about what he will be doing. But I cannot address extensively her concern. She should call pulmonary for further info and discission. The patient condition is of care
[2018-02-06] MEDS: dilTIAZem 60 MG Tablet PO SCH ×3 (14:13→21:43)
--- NOTE | 2018-02-06 16:26 | P.PN ---
Subjective Interval history: Feels weak. HR is better. is hesitant to agree for Bronchoscopy due to HR and A Fib. Off O2 Physical Exam Vital signs: Vital Signs 02/05/18 17:00 02/05/18 17:20 02/05/18 18:00 Temperature 98.7 F Pulse Rate 110 H 134 H Respiratory Rate 23 30 H Blood Pressure 104/75 109/80 Pulse Oximetry 92 L 92 L 02/05/18 19:00 02/05/18 20:00 02/05/18 20:15 Temperature Pulse Rate 102 H 108 H Respiratory Rate 20 21 Blood Pressure 95/50 L 102/78 Pulse Oximetry 94 L 98 94 L 02/05/18 21:00 02/05/18 22:00 02/05/18 23:00 Temperature Pulse Rate 118 H 114 H 100 H Respiratory Rate 20 20 20 Blood Pressure 99/65 L 103/64 109/73 Pulse Oximetry 98 96 94 L 02/06/18 00:00 02/06/18 01:00 02/06/18 02:00 Temperature 97.2 F L Pulse Rate 114 H 107 H 110 H Respiratory Rate 20 20 20 Blood Pressure 114/74 122/72 112/77 Pulse Oximetry 93 L 02/06/18 04:00 02/06/18 05:00 02/06/18 06:00 Temperature 98.4 F Pulse Rate 110 H 100 H 91 H Respiratory Rate 23 20 20 Blood Pressure 117/83 119/72 115/82 Pulse Oximetry 92 L 96 95 02/06/18 07:00 02/06/18 07:30 02/06/18 08:00 Temperature Pulse Rate 118 H 107 H Respiratory Rate 20 23 Blood Pressure 113/71 115/85 Pulse Oximetry 92 L 98 91 L 02/06/18 08:05 02/06/18 09:00 02/06/18 09:15 Temperature Pulse Rate 163 H 170 H 157 H Respiratory Rate 22 Blood Pressure 96/72 L Pulse Oximetry 97 02/06/18 09:18 02/06/18 09:25 02/06/18 09:29 Temperature Pulse Rate 166 H 132 H 149 H Respiratory Rate 27 H 24 Blood Pressure 85/59 L 74/64 L Pulse Oximetry 97 97 02/06/18 09:35 02/06/18 10:00 02/06/18 10:04 Temperature Pulse Rate 162 H 100 H 110 H Respiratory Rate 25 H 24 23 Blood Pressure 88/60 L 80/72 L 72/56 L Pulse Oximetry 97 96 96 02/06/18 10:09 02/06/18 10:14 02/06/18 10:19 Temperature Pulse Rate 108 H 102 H 104 H Respiratory Rate 23 22 25 H Blood Pressure 87/61 L 95/61 L 98/63 L Pulse Oximetry 87 L 94 L 93 L 02/06/18 10:24 02/06/18 10:29 02/06/18 11:00 Temperature Pulse Rate 106 H 106 H 118 H Respiratory Rate 23 22 24 Blood Pressure 95/62 L 106/66 97/65 L Pulse Oximetry 96 97 97 02/06/18 11:27 02/06/18 12:00 02/06/18 13:00 Temperature 98.4 F Pulse Rate 110 H 100 H 130 H Respiratory Rate 22 22 23 Blood Pressure 123/81 121/73 88/56 L Pulse Oximetry 96 95 95 02/06/18 14:00 02/06/18 15:00 Temperature Pulse Rate 128 H 116 H Respiratory Rate 21 22 Blood Pressure 89/62 L 115/59 L Pulse Oximetry 96 92 L Intake & Output 02/05/18 02/06/18 02/06/18 18:59 06:59 18:59 Intake Total 960 / 960 350 / 350 Output Total 400 / 400 Balance 560 / 560 350 / 350 Weight 53.4 kg Intake: IV 350 / 350 Azithromycin Inj 500 MG In NS 250 / 250 Inj 250 ML @ 250 mls/hr IV.SIG Q24H [facility] Rx#:[id number] Rocephin Inj 1,000 MG In NS Inj 100 / 100 100 ML @ 200 mls/hr IV.SIG Q24H [facility] Rx#:[id number] Oral 960 / 960 Output: Urine 400 / 400 Other: Post Void Residual 500 Date of Last Bowel Movement 02/04/18 02/06/18 02/06/18 # Bowel Movements 2 Narrative: General:Elderly W/m pale in No acute distress Eyes: EOM grossly I HENT: Normal mucus membranes Skin: No visible lesions CV:Irregular rhythm; No Murmur. Resp: mild wheezing, decreased breath sounds, normal rate Abdomen: Normal BS. No pain to palpation Ext: Grossly normal ROM and motor function Neuro: Awake/alert. Grossly normal CN. Grossly normal peripheral motor/sensory function Results - Labs CBC & Chem 7: 02/06/18 11:48 02/06/18 11:48 Laboratory Results - last 24 hr 02/06/18 02/06/18 11:48 11:48 CBC w Diff Auto diff final WBC 12.0 H RBC 4.19 L Hgb 12.4 L Hct 38.0 L MCV 90.7 MCH 29.6 MCHC 32.6 RDW 14.6 Plt Count 457 H MPV 8.1 Neut % (Auto) 71.2 H Lymph % (Auto) 6.7 L [place] % (Auto) 8.4 H Eos % (Auto) 9.1 H Baso % (Auto) 4.6 H Neut # (Auto) 8.5 H Lymph # (Auto) 0.8 L [place] # (Auto) 1.0 H Eos # (Auto) 1.1 H Baso # (Auto) 0.6 H WBC Differential . Differential Comment . Sodium 141 Potassium 3.9 Chloride 104 Carbon Dioxide 31.4 Anion Gap 6 BUN 16 Creatinine 0.74 Estimated GFR Greater than 89 Random Glucose 92 Calcium 8.6 Microbiology 02/03/18 21:00 Blood - Peripheral Aerobic Blood Culture - Preliminary No growth in 3 days 02/03/18 21:00 Blood - Peripheral Anaerobic Blood Culture - Preliminary No growth in 3 days 02/03/18 21:10 Blood - Peripheral Aerobic Blood Culture - Preliminary No growth in 3 days 02/03/18 21:10 Blood - Peripheral Anaerobic Blood Culture - Preliminary No growth in 3 days Assessment and Plan - Assessment (1) Pneumonia Code(s): J18.9 - Pneumonia, unspecified organism Status: Acute (2) Mass of lung parenchyma Code(s): R91.8 - Other nonspecific abnormal finding of lung field Status: Acute (3) COPD (chronic obstructive pulmonary disease) Code(s): J44.9 - Chronic obstructive pulmonary disease, unspecified Status: Acute (4) Atrial fibrillation with RVR Code(s): I48.91 - Unspecified atrial fibrillation Status: Acute (5) Weight loss Code(s): R63.4 - Abnormal weight loss Status: Acute (6) Cough Code(s): R05 - Cough Status: Acute - Plan 1. Will Hold Bronchoscopy on Wednesday till and patient agrees 2. Continue antibiotics , Rocephin. 3. Duonebs tid PRN 4. Continue O2 2L PRN 5. Hold Lovenox on Wednesday. 6. CBC Coag Profile on Wednesday 7. Monitor cardiac Rhythm
[2018-02-06] MEDS: Azithromycin Inj 500 MG in Sodium Chlor 0.9% Inj 250 ML IV.SIG SCH (21:41)
[2018-02-06] MEDS: Enoxaparin Inj 60 MG/0.6 ML Syringe SQ SCH (22:47)
[2018-02-07] MEDS ORDERED: Sodium Chlor 0.9% Inj 500 ML IV.SIG SCH (00:59)
[2018-02-07] MEDS: Chlorhexidine Gluconate 2% 1 Pack (2 Cloths) TOPICAL SCH (04:52)
[2018-02-07 05:26] LABS: Baso # (Auto) 0.1 th/mm3 (0.0-0.2); Baso % (Auto) 1.3 % (0.0-2.0); Eos # (Auto) 1.2 th/mm3 (0.0-0.4); Eos % (Auto) 10.8 % (0.0-4.0); Hematocrit 33.8 % (39.0-51.0); Hemoglobin 10.9 gm/dL (13.0-17.0); Lymph # (Auto) 0.9 th/mm3 (1.0-4.8); Lymph % (Auto) 8.3 % (9.0-44.0); Mean Corpuscular HGB Conc 32.2 % (32.0-36.0); Mean Corpuscular Hemoglobin 29.1 pg (27.0-34.0); Mean Corpuscular Volume 90.4 fL (80.0-100.0); Mean Platelet Volume 8.6 fL (7.0-11.0); Mono # (Auto) 1.3 th/mm3 (0.0-0.9); Mono % (Auto) 11.2 % (0.0-8.0); Neut # (Auto) 7.9 th/mm3 (1.8-7.7); Neut % (Auto) 68.4 % (16.0-70.0); Platelet Count 434 th/mm3 (150-450); Red Blood Count 3.74 mil/mm3 (4.50-5.90); Red Cell Distribution Width 14.9 % (11.6-17.2); White Blood Count 11.4 th/mm3 (4.0-11.0)
[2018-02-07 05:33] LABS: Chloride 110 meq/L (98-107); Potassium 3.9 meq/L (3.5-5.1); Sodium 145 meq/L (136-145)
[2018-02-07 05:35] LABS: INR 1.2 Ratio; Prothrombin Time 12.3 sec (9.8-11.6)
[2018-02-07 05:36] LABS: Anion Gap 8 meq/L (5-15); Calcium 8.1 mg/dL (8.5-10.1); Carbon Dioxide 27.4 meq/L (21.0-32.0); Glucose,Random 101 mg/dL (74-106)
[2018-02-07 05:40] LABS: Glomerular Filtration Rate Greater Than 89 mL/min (>89)
[2018-02-07 05:44] LABS: Blood Urea Nitrogen 17 mg/dL (7-18)
[2018-02-07 05:55] LABS: Eosinophils 11 % (0-4); Lymphocytes 9 % (9-44); Monocytes 11 % (0-8)
[2018-02-07 05:56] LABS: Ovalocytes 1+; Platelet Estimate Normal (Normal); Platelet Morphology Normal (Normal)
[2018-02-07] MEDS: Digoxin 125 MCG Tablet PO SCH (08:40)
[2018-02-07] MEDS: Enoxaparin Inj 60 MG/0.6 ML Syringe SQ SCH (09:44)
[2018-02-07] MEDS: dilTIAZem CD 240 MG Capsule PO SCH (09:44)
[2018-02-07] MEDS: Senna/Docusate Sodium 8.6/50 MG Tablet PO SCH ×2 (09:45→20:51)
[2018-02-07] MEDS ORDERED: fentaNYL Citrate Inj 250 MCG/5 ML Ampul ONE (10:53)
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
[2018-02-07] MEDS ORDERED: EPINEPHrine PF/SF Inj 1 MG/ML Ampul I-OCULAR ONE (11:01)
[2018-02-07] MEDS ORDERED: Lidocaine 2% Inj 50 ML Vial ONE (11:01)
[2018-02-07] MEDS ORDERED: Lidocaine 2% Jelly 5 ML Syringe ONE (11:01)
[2018-02-07] MEDS ORDERED: Phenylephrine/NS 1000 MCG/10ML Syringe IV.PUSH ONE (11:46)
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
--- NOTE | 2018-02-07 16:23 | P.PN ---
Subjective Interval history: 72-year-old male who is seen and examined today for follow-up of atrial fibrillation, lung mass. Patient heart rate remained stable at this time. Today by Dr. Mitchell. Vital signs appear to be stable. Patient remains afebrile. Physical Exam Vital signs: Vital Signs 02/06/18 16:00 02/06/18 17:00 02/06/18 18:00 Temperature 98.6 F Pulse Rate 80 68 68 Respiratory Rate 16 21 21 Blood Pressure 93/60 L 98/59 L 98/55 L Pulse Oximetry 94 L 94 L 96 02/06/18 19:00 02/06/18 19:35 02/06/18 20:00 Temperature Pulse Rate 73 Respiratory Rate 19 Blood Pressure 98/55 L Pulse Oximetry 97 94 L 96 02/06/18 20:19 02/06/18 21:00 02/06/18 22:00 Temperature 98.7 F Pulse Rate 80 76 56 L Respiratory Rate 24 17 20 Blood Pressure 102/54 L 87/54 L 101/55 L Pulse Oximetry 96 93 L 94 L 02/06/18 23:00 02/06/18 23:53 02/07/18 00:00 Temperature 98.1 F Pulse Rate 56 L 50 L Respiratory Rate 16 20 14 Blood Pressure 82/50 L 63/35 L Pulse Oximetry 95 02/07/18 00:19 02/07/18 00:38 02/07/18 00:53 Temperature Pulse Rate 50 L 54 L 50 L Respiratory Rate 18 17 16 Blood Pressure 68/41 L 74/39 L 63/38 L Pulse Oximetry 92 L 91 L 92 L 02/07/18 01:01 02/07/18 01:50 02/07/18 02:00 Temperature 98.3 F Pulse Rate 50 L 52 L 54 L Respiratory Rate 17 20 20 Blood Pressure 71/34 L 76/54 L 87/50 L Pulse Oximetry 93 L 96 95 02/07/18 02:01 02/07/18 02:31 02/07/18 02:46 Temperature Pulse Rate 52 L 60 56 L Respiratory Rate 25 H 20 19 Blood Pressure 87/46 L 81/49 L 81/49 L Pulse Oximetry 93 L 92 L 93 L 02/07/18 03:00 02/07/18 04:00 02/07/18 05:02 Temperature 98.0 F Pulse Rate 54 L 61 56 L Respiratory Rate 18 20 15 Blood Pressure 96/50 L 101/63 104/59 L Pulse Oximetry 92 L 95 94 L 02/07/18 05:20 02/07/18 06:00 02/07/18 07:02 Temperature 97.7 F Pulse Rate 66 60 62 Respiratory Rate 26 H 18 15 Blood Pressure 99/51 L 103/54 L 101/57 L Pulse Oximetry 92 L 94 L 94 L 02/07/18 07:53 02/07/18 08:00 02/07/18 08:02 Temperature Pulse Rate 64 64 Respiratory Rate 16 Blood Pressure 93/53 L Pulse Oximetry 94 L 93 L 02/07/18 09:03 02/07/18 10:10 02/07/18 11:03 Temperature Pulse Rate 82 86 88 Respiratory Rate 24 21 24 Blood Pressure 127/69 146/65 H 145/78 H Pulse Oximetry 95 95 94 L 02/07/18 12:30 02/07/18 12:45 02/07/18 12:49 Temperature 98.8 F 98.8 F Pulse Rate 120 H 112 H 120 H Respiratory Rate 16 16 Blood Pressure 117/61 137/90 117/61 Pulse Oximetry 98 94 L 98 02/07/18 13:00 02/07/18 13:25 Temperature 98.6 F Pulse Rate 114 H 104 H Respiratory Rate 16 16 Blood Pressure 137/90 142/76 H Pulse Oximetry 98 97 Intake & Output 02/06/18 02/07/18 02/07/18 18:59 06:59 18:59 Intake Total 960 / 960 850 / 850 650 / 650 Output Total 450 / 450 Balance 960 / 960 400 / 400 650 / 650 Weight 55.9 kg Intake: IV 850 / 850 Azithromycin Inj 500 MG In NS 250 / 250 Inj 250 ML @ 250 mls/hr IV.SIG Q24H KARI Rx#:[id number] NS Inj 500 ML @ Wide Open IV. 500 / 500 SIG BOLUS KARI Rx#:[id number] Rocephin Inj 1,000 MG In NS Inj 100 / 100 100 ML @ 200 mls/hr IV.SIG Q24H KARI Rx#:[id number] Oral 960 / 960 Anesthesia Amount 650 / 650 Output: Urine 450 / 450 Other: # Voids 6 Date of Last Bowel Movement 02/06/18 02/06/18 02/06/18 # Bowel Movements 3 1 Narrative: GENERAL: Well-developed, frail and cachectic, in no acute distress. alert and orientated HEENT: Head is normocephalic without any lesions or masses noted. Facial features are symmetric. Eyes: Extraocular muscles are intact. Conjunctivae were clear. NECK: Supple without any masses. Trachea midline no deviation. No JVD, CARDIAC: Regular rhythm, regular rate. S1/S2 are heard. No murmurs gallops or rubs. LUNGS: Diminished breath sounds noted throughout. No wheeze, rhonchi or rales. No use of accessory muscles on inspiration or expiration. ABDOMEN: Soft, nontender. Nondistended. Bowel sounds heard in all 4 quadrants. No organomegaly or masses. Negative rebound, negative guarding EXTREMITIES: No edema, pulses are equal bilaterally. No cyanosis or clubbing NEUROLOGY: Mood and affect appear appropriate. Cranial nerves II through XII grossly intact. Moving all extremities, speech is clear Results - Labs CBC & Chem 7: 02/07/18 04:30 02/07/18 04:30 Laboratory Results - last 24 hr 02/07/18 02/07/18 02/07/18 04:30 04:30 04:30 CBC w Diff Slide review pending WBC 11.4 H RBC 3.74 L Hgb 10.9 L Hct 33.8 L MCV 90.4 MCH 29.1 MCHC 32.2 RDW 14.9 Plt Count 434 MPV 8.6 Neut % (Auto) 68.4 Lymph % (Auto) 8.3 L [place] % (Auto) 11.2 H Eos % (Auto) 10.8 H Baso % (Auto) 1.3 Neut # (Auto) 7.9 H Lymph # (Auto) 0.9 L [place] # (Auto) 1.3 H Eos # (Auto) 1.2 H Baso # (Auto) 0.1 WBC Differential Manual diff final Seg Neuts % (Manual) 61 Band Neuts % (Manual) 7 H Lymphocytes % (Manual) 9 Monocytes % (Manual) 11 H Eosinophils % (Manual) 11 H Basophils % (Manual) 1 Abs Neuts (Manual) 7.8 H Differential Comment . Platelet Estimate Normal Platelet Morphology Normal Ovalocytes 1+ H PT 12.3 H INR 1.2 Sodium 145 Potassium 3.9 Chloride 110 H Carbon Dioxide 27.4 Anion Gap 8 BUN 17 Creatinine 0.59 L Estimated GFR Greater than 89 Random Glucose 101 Calcium 8.1 L Microbiology 02/03/18 21:00 Blood - Peripheral Aerobic Blood Culture - Preliminary No growth in 4 days 02/03/18 21:00 Blood - Peripheral Anaerobic Blood Culture - Preliminary No growth in 4 days 02/03/18 21:10 Blood - Peripheral Aerobic Blood Culture - Preliminary No growth in 4 days 02/03/18 21:10 Blood - Peripheral Anaerobic Blood Culture - Preliminary No growth in 4 days - Imaging Impressions Chest X-Ray 02/07/18 12:14 CONCLUSION: Right-sided effusion and chronic interstitial changes. Similar exam from previous. Assessment and Plan - Assessment (1) Weight loss Code(s): R63.4 - Abnormal weight loss Status: Acute (2) Atrial fibrillation with RVR Code(s): I48.91 - Unspecified atrial fibrillation Status: Acute (3) Cough Code(s): R05 - Cough Status: Acute - Plan Atrial fibrillation with RVR -Heart rate controlled at this time -Cardizem 240 mg daily -Digoxin 125 mcg daily -Cardiology was consulted for management. Cardiology did adjust medications to switch to Cardizem 240 mg daily, digoxin 0.125 mg daily discontinuation of metoprolol -Patient was anticoagulated on Xarelto, currently held due to bronchoscopy, will resume today -Cardiology indicated the patient is at moderate to high risk for any procedure due to his underlying cardiac condition Large right basilar opacity concerning for mass, airspace disease, pleural effusion. -Patient treated for pneumonia with Rocephin and Zithromax -Bronchoscopy is performed today, patient can follow-up outpatient for pathology -Continue [facility] -Pulmonology is following the patient and requests that the patient today in the hospital to at least tomorrow 02/08/18 -Oncology is following the patient, continue outpatient follow-up for pathology and possible treatment Weight loss -Continue nutritional supplement -Dietary consulted Slurred speech -CT the brain was unremarkable for any acute abnormality DVT prevention -Patient was on Xarelto, that was held for bronchoscopy and patient was started on Lovenox bridge -Resume Xarelto Discharge Planning: Anticipate discharge tomorrow once cleared by pulmonology
--- NOTE | 2018-02-07 17:48 | P.PNCA ---
Subjective Interval history: No events overnight Planning on undergoing bronchoscopy today Heart rates mostly controlled Physical Exam Vital signs: Vital Signs 02/06/18 18:00 02/06/18 19:00 02/06/18 19:35 Temperature Pulse Rate 68 73 Respiratory Rate 21 19 Blood Pressure 98/55 L 98/55 L Pulse Oximetry 96 97 94 L 02/06/18 20:00 02/06/18 20:19 02/06/18 21:00 Temperature 98.7 F Pulse Rate 80 76 Respiratory Rate 24 17 Blood Pressure 102/54 L 87/54 L Pulse Oximetry 96 96 93 L 02/06/18 22:00 02/06/18 23:00 02/06/18 23:53 Temperature Pulse Rate 56 L 56 L Respiratory Rate 20 16 20 Blood Pressure 101/55 L 82/50 L Pulse Oximetry 94 L 02/07/18 00:00 02/07/18 00:19 02/07/18 00:38 Temperature 98.1 F Pulse Rate 50 L 50 L 54 L Respiratory Rate 14 18 17 Blood Pressure 63/35 L 68/41 L 74/39 L Pulse Oximetry 95 92 L 91 L 02/07/18 00:53 02/07/18 01:01 02/07/18 01:50 Temperature 98.3 F Pulse Rate 50 L 50 L 52 L Respiratory Rate 16 17 20 Blood Pressure 63/38 L 71/34 L 76/54 L Pulse Oximetry 92 L 93 L 96 02/07/18 02:00 02/07/18 02:01 02/07/18 02:31 Temperature Pulse Rate 54 L 52 L 60 Respiratory Rate 20 25 H 20 Blood Pressure 87/50 L 87/46 L 81/49 L Pulse Oximetry 95 93 L 92 L 02/07/18 02:46 02/07/18 03:00 02/07/18 04:00 Temperature 98.0 F Pulse Rate 56 L 54 L 61 Respiratory Rate 19 18 20 Blood Pressure 81/49 L 96/50 L 101/63 Pulse Oximetry 93 L 92 L 95 02/07/18 05:02 02/07/18 05:20 02/07/18 06:00 Temperature Pulse Rate 56 L 66 60 Respiratory Rate 15 26 H 18 Blood Pressure 104/59 L 99/51 L 103/54 L Pulse Oximetry 94 L 92 L 94 L 02/07/18 07:02 02/07/18 07:53 02/07/18 08:00 Temperature 97.7 F Pulse Rate 62 64 Respiratory Rate 15 Blood Pressure 101/57 L Pulse Oximetry 94 L 94 L 02/07/18 08:02 02/07/18 09:03 02/07/18 10:00 Temperature Pulse Rate 64 82 90 Respiratory Rate 16 24 Blood Pressure 93/53 L 127/69 Pulse Oximetry 93 L 95 02/07/18 10:10 02/07/18 11:03 02/07/18 11:09 Temperature 98.1 F Pulse Rate 86 88 98 H Respiratory Rate 21 24 23 Blood Pressure 146/65 H 145/78 H Pulse Oximetry 95 94 L 96 02/07/18 12:30 02/07/18 12:45 02/07/18 12:49 Temperature 98.8 F 98.8 F Pulse Rate 120 H 112 H 120 H Respiratory Rate 16 16 Blood Pressure 117/61 137/90 117/61 Pulse Oximetry 98 94 L 98 02/07/18 13:00 02/07/18 13:25 02/07/18 13:39 Temperature 98.6 F Pulse Rate 114 H 104 H Respiratory Rate 16 16 Blood Pressure 137/90 142/76 H 135/65 Pulse Oximetry 98 97 02/07/18 14:00 02/07/18 15:00 02/07/18 16:00 Temperature Pulse Rate 98 H 74 64 Respiratory Rate 23 29 H 12 Blood Pressure 126/68 115/67 Pulse Oximetry 97 93 L 02/07/18 17:00 Temperature 98.1 F Pulse Rate 80 Respiratory Rate 23 Blood Pressure 114/62 Pulse Oximetry 93 L Intake & Output 02/06/18 02/07/18 02/07/18 18:59 06:59 18:59 Intake Total 960 / 960 850 / 850 650 / 650 Output Total 450 / 450 Balance 960 / 960 400 / 400 650 / 650 Weight 55.9 kg Intake: IV 850 / 850 Azithromycin Inj 500 MG In NS 250 / 250 Inj 250 ML @ 250 mls/hr IV.SIG Q24H KARI Rx#:[id number] NS Inj 500 ML @ Wide Open IV. 500 / 500 SIG BOLUS KARI Rx#:[id number] Rocephin Inj 1,000 MG In NS Inj 100 / 100 100 ML @ 200 mls/hr IV.SIG Q24H KARI Rx#:[id number] Oral 960 / 960 Anesthesia Amount 650 / 650 Output: Urine 450 / 450 Other: # Voids 6 Date of Last Bowel Movement 02/06/18 02/06/18 02/06/18 # Bowel Movements 3 1 Narrative: GENERAL: Well-developed, frail and cachectic, in no acute distress. alert and orientated HEENT: Head is normocephalic without any lesions or masses noted. Facial features are symmetric. Eyes: Extraocular muscles are intact. Conjunctivae were clear. NECK: Supple without any masses. Trachea midline no deviation. No JVD, CARDIAC: Irregularly irregular, regular rate. S1/S2 are heard. No murmurs gallops or rubs. LUNGS: Diminished breath sounds noted throughout. No wheeze, rhonchi or rales. No use of accessory muscles on inspiration or expiration. ABDOMEN: Soft, nontender. Nondistended. Bowel sounds heard in all 4 quadrants. No organomegaly or masses. Negative rebound, negative guarding EXTREMITIES: No edema, pulses are equal bilaterally. No cyanosis or clubbing NEUROLOGY: Mood and affect appear appropriate. Cranial nerves II through XII grossly intact. Moving all extremities, speech is clear Assessment and Plan - Assessment (1) Atrial fibrillation with RVR Code(s): I48.91 - Unspecified atrial fibrillation Status: Acute (2) Weight loss Code(s): R63.4 - Abnormal weight loss Status: Acute (3) Mass of lung parenchyma Code(s): R91.8 - Other nonspecific abnormal finding of lung field Status: Acute - Plan 1) Afib with RVR Now controlled Con't Digoxin/Cardizem Previously on Xarelto Currently on hold for Bronchoscopy Would restart once safe after bronch 2) Large opacity Bronch today for evaluation for malignancy 3) Weight loss Being worked up for malignancy
--- NOTE | 2018-02-07 18:39 | P.PNONC ---
Subjective Interval history: Patient seen and examined, vital signs, labs and procedure notes reviewed. Earlier today, he underwent a bronchoscopy, the bronchus to the right lower lobe was noted to be obstructed secondary to extrinsic compression. Friable lesion was identified as well within the right lower lobe bronchus, this was biopsied, brushings were obtained. Patient reports breathing is stable, denies chest pain, his heart rate is better controlled today as well. Objective Vital Signs/Intake & Output: Vital Signs 02/06/18 19:00 02/06/18 19:35 02/06/18 20:00 Temperature Pulse Rate 73 Respiratory Rate 19 Blood Pressure 98/55 L Pulse Oximetry 97 94 L 96 02/06/18 20:19 02/06/18 21:00 02/06/18 22:00 Temperature 98.7 F Pulse Rate 80 76 56 L Respiratory Rate 24 17 20 Blood Pressure 102/54 L 87/54 L 101/55 L Pulse Oximetry 96 93 L 94 L 02/06/18 23:00 02/06/18 23:53 02/07/18 00:00 Temperature 98.1 F Pulse Rate 56 L 50 L Respiratory Rate 16 20 14 Blood Pressure 82/50 L 63/35 L Pulse Oximetry 95 02/07/18 00:19 02/07/18 00:38 02/07/18 00:53 Temperature Pulse Rate 50 L 54 L 50 L Respiratory Rate 18 17 16 Blood Pressure 68/41 L 74/39 L 63/38 L Pulse Oximetry 92 L 91 L 92 L 02/07/18 01:01 02/07/18 01:50 02/07/18 02:00 Temperature 98.3 F Pulse Rate 50 L 52 L 54 L Respiratory Rate 17 20 20 Blood Pressure 71/34 L 76/54 L 87/50 L Pulse Oximetry 93 L 96 95 02/07/18 02:01 02/07/18 02:31 02/07/18 02:46 Temperature Pulse Rate 52 L 60 56 L Respiratory Rate 25 H 20 19 Blood Pressure 87/46 L 81/49 L 81/49 L Pulse Oximetry 93 L 92 L 93 L 02/07/18 03:00 02/07/18 04:00 02/07/18 05:02 Temperature 98.0 F Pulse Rate 54 L 61 56 L Respiratory Rate 18 20 15 Blood Pressure 96/50 L 101/63 104/59 L Pulse Oximetry 92 L 95 94 L 02/07/18 05:20 02/07/18 06:00 02/07/18 07:02 Temperature 97.7 F Pulse Rate 66 60 62 Respiratory Rate 26 H 18 15 Blood Pressure 99/51 L 103/54 L 101/57 L Pulse Oximetry 92 L 94 L 94 L 02/07/18 07:53 02/07/18 08:00 02/07/18 08:02 Temperature Pulse Rate 64 64 Respiratory Rate 16 Blood Pressure 93/53 L Pulse Oximetry 94 L 93 L 02/07/18 09:03 02/07/18 10:00 02/07/18 10:10 Temperature Pulse Rate 82 90 86 Respiratory Rate 24 21 Blood Pressure 127/69 146/65 H Pulse Oximetry 95 95 02/07/18 11:03 02/07/18 11:09 02/07/18 12:30 Temperature 98.1 F 98.8 F Pulse Rate 88 98 H 120 H Respiratory Rate 24 23 Blood Pressure 145/78 H 117/61 Pulse Oximetry 94 L 96 98 02/07/18 12:45 02/07/18 12:49 02/07/18 13:00 Temperature 98.8 F Pulse Rate 112 H 120 H 114 H Respiratory Rate 16 16 16 Blood Pressure 137/90 117/61 137/90 Pulse Oximetry 94 L 98 98 02/07/18 13:25 02/07/18 13:39 02/07/18 14:00 Temperature 98.6 F Pulse Rate 104 H 98 H Respiratory Rate 16 23 Blood Pressure 142/76 H 135/65 126/68 Pulse Oximetry 97 97 02/07/18 15:00 02/07/18 16:00 02/07/18 17:00 Temperature 98.1 F Pulse Rate 74 64 80 Respiratory Rate 29 H 12 23 Blood Pressure 115/67 114/62 Pulse Oximetry 93 L 93 L Intake & Output 02/06/18 02/07/18 02/07/18 18:59 06:59 18:59 Intake Total 960 / 960 850 / 850 650 / 650 Output Total 450 / 450 Balance 960 / 960 400 / 400 650 / 650 Weight 55.9 kg Intake: IV 850 / 850 Azithromycin Inj 500 MG In NS 250 / 250 Inj 250 ML @ 250 mls/hr IV.SIG Q24H KARI Rx#:[id number] NS Inj 500 ML @ Wide Open IV. 500 / 500 SIG BOLUS KARI Rx#:[id number] Rocephin Inj 1,000 MG In NS Inj 100 / 100 100 ML @ 200 mls/hr IV.SIG Q24H KARI Rx#:[id number] Oral 960 / 960 Anesthesia Amount 650 / 650 Output: Urine 450 / 450 Other: # Voids 6 Date of Last Bowel Movement 02/06/18 02/06/18 02/06/18 # Bowel Movements 3 1 Result Diagrams: 02/07/18 04:30 02/07/18 04:30 Laboratory Results: Laboratory Results - last 24 hr 02/07/18 02/07/18 02/07/18 04:30 04:30 04:30 CBC w Diff Slide review pending WBC 11.4 H RBC 3.74 L Hgb 10.9 L Hct 33.8 L MCV 90.4 MCH 29.1 MCHC 32.2 RDW 14.9 Plt Count 434 MPV 8.6 Neut % (Auto) 68.4 Lymph % (Auto) 8.3 L [place] % (Auto) 11.2 H Eos % (Auto) 10.8 H Baso % (Auto) 1.3 Neut # (Auto) 7.9 H Lymph # (Auto) 0.9 L [place] # (Auto) 1.3 H Eos # (Auto) 1.2 H Baso # (Auto) 0.1 WBC Differential Manual diff final Seg Neuts % (Manual) 61 Band Neuts % (Manual) 7 H Lymphocytes % (Manual) 9 Monocytes % (Manual) 11 H Eosinophils % (Manual) 11 H Basophils % (Manual) 1 Abs Neuts (Manual) 7.8 H Differential Comment . Platelet Estimate Normal Platelet Morphology Normal Ovalocytes 1+ H PT 12.3 H INR 1.2 Sodium 145 Potassium 3.9 Chloride 110 H Carbon Dioxide 27.4 Anion Gap 8 BUN 17 Creatinine 0.59 L Estimated GFR Greater than 89 Random Glucose 101 Calcium 8.1 L Culture Results: Microbiology 02/03/18 21:00 Aerobic Blood Culture - Preliminary Blood - Peripheral No growth in 4 days Anaerobic Blood Culture - Preliminary No growth in 4 days 02/03/18 21:10 Aerobic Blood Culture - Preliminary Blood - Peripheral No growth in 4 days Anaerobic Blood Culture - Preliminary No growth in 4 days Imaging Studies: Impressions Chest X-Ray 02/07/18 12:14 CONCLUSION: Right-sided effusion and chronic interstitial changes. Similar exam from previous. Medications: Active Medications Generic Name Dose Route Start Last Admin Trade Name Freq PRN Reason Stop Dose Admin Acetaminophen 650 mg 02/03/18 19:05 02/06/18 22:46 Tylenol PO 650 mg Q4H PRN Administration Temp > 100.4 Albuterol 1 ampul 02/03/18 19:13 02/05/18 14:31 Duoneb Neb (Prn) NEB 1 ampul Q8HR NEB PRN Administration SHORTNESS OF BREATH/WHEEZING Chlorhexidine Gluconate 3 pack 02/04/18 04:00 02/07/18 04:52 Chlorhexidine 2% Cloth TOPICAL 02/09/18 03:59 3 pack DAILY@0400 KARI Administration Digoxin 125 mcg 02/04/18 09:00 02/07/18 08:40 Lanoxin PO 125 mcg DAILY KARI Administration Diltiazem HCl 240 mg 02/07/18 09:00 02/07/18 09:44 Cardizem Cd 24hr PO 240 mg DAILY KARI Administration Azithromycin 500 mg/ Sodium 250 mls @ 250 mls/hr 02/03/18 21:00 02/06/18 22: 48 Chloride IV.SIG Infused Q24H KARI Infusion Ceftriaxone Sodium 1,000 mg/ 100 mls @ 200 mls/hr 02/03/18 20:00 02/06/18 22: 48 Sodium Chloride IV.SIG Infused Q24H KARI Infusion Sodium Chloride 500 mls @ 0 mls/hr 02/07/18 00:59 02/07/18 01:39 Ns Inj IV.SIG Infused BOLUS KARI Infusion Wide Open Metoprolol Tartrate 5 mg 02/05/18 23:43 02/06/18 09:44 Lopressor Inj IV.PUSH 5 mg Q6H PRN Administration HR >120 Rivaroxaban 20 mg 02/04/18 09:00 02/04/18 08:06 Xarelto PO 20 mg DAILY KARI Administration Senna/Docusate Sodium 1 tab 02/03/18 21:00 02/07/18 09:45 Nandini-Colace PO Not Given BID KARI Objective Remarks: GENERAL: Elderly male, frail appearing, laying in bed, not acutely distressed appears to be near cachectic. SKIN: Warm and dry. HEAD: Normocephalic. EYES: No scleral icterus. No injection or drainage. NECK: Supple, trachea midline. No JVD or lymphadenopathy. LYMPHATIC: No adenopathy. CARDIOVASCULAR: Irregular rhythm, no evidence of tachycardia, S1-S2 faint systolic murmur. RESPIRATORY: Decreased right mid and basilar breath sounds, good air movement of the right upper lung. Left side good air movement of the upper and lower zones. Generally prolonged expiratory phase. GASTROINTESTINAL: Abdomen soft, non-tender, nondistended. EXTREMITIES: No cyanosis, or edema. MUSCULOSKELETAL: Adequate muscle tone. NEUROLOGICAL: No obvious focal deficit. Awake, alert, and oriented x3. PSYCHIATRIC: Appropriate mood and affect; insight and judgment normal. Assessment/Plan - Plan Mr. Ca is a very pleasant 72-year-old man with an approximate [id number] history of smoking, he could smoking about 4 years ago. 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 Presents the hospital with palpitations, increasing difficulty breathing, unintended weight loss and generalized weakness. The patient was found to be in A. fib with RVR, he has been on various rate control medications and anticoagulation for management of atrial fibrillation. CT imaging performed on 02/04/2018 reveals a large right basilar opacity involving the lower lobe concerning for a mass in combination with consolidative airspace disease and pleural accumulation. 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 Small spiculated left upper lobe mass is also identified. Findings have been described on CT report dated 02/04/2018.. 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 Recommendations: 1. Right lower lobe mass: Appreciate pulmonology assistance. Bronchoscopy procedure note from earlier today reviewed. Await cytology and biopsy results. I scheduled patient for outpatient follow-up with me on 02/11/2018 at my [facility]. I will request outpatient staging studies. He does not appear to be a candidate for surgical resection given his frailty and likelihood of metastatic disease or second primary site in the left lung which appears to be a spiculated mass. He is likely candidate for palliation with either single modality systemic therapy or combination chemoradiotherapy.
[2018-02-07] MEDS: Azithromycin Inj 500 MG in Sodium Chlor 0.9% Inj 250 ML IV.SIG SCH (20:50)
[2018-02-08] MEDS: Chlorhexidine Gluconate 2% 1 Pack (2 Cloths) TOPICAL SCH (03:43)
[2018-02-08] MEDS: dilTIAZem CD 240 MG Capsule PO SCH (09:26)
[2018-02-08] MEDS: Digoxin 125 MCG Tablet PO SCH (09:26)
[2018-02-08] MEDS: Senna/Docusate Sodium 8.6/50 MG Tablet PO SCH ×2 (09:27→22:56)
[2018-02-08] MEDS: Rivaroxaban 20 MG Tablet PO SCH (10:36)
--- NOTE | 2018-02-08 10:54 | P.PNIM ---
Subjective Interval history: Follow up a fib, lung mass. Patient seen and examined, lying in bed comfortably no apparent distress. On room air with adequate saturations 96%. Patient denies any reports of any acute events overnight. PT to see patient, no recommendations for PT at home. Cardiology to see patient today, appreciate recommendations. Call placed to pulmonology, will see later today, possible discharge later. Physical Exam Vital signs: Vital Signs 02/07/18 11:03 02/07/18 11:09 02/07/18 12:30 Temperature 98.1 F 98.8 F Pulse Rate 88 98 H 120 H Respiratory Rate 24 23 Blood Pressure 145/78 H 117/61 Pulse Oximetry 94 L 96 98 02/07/18 12:45 02/07/18 12:49 02/07/18 13:00 Temperature 98.8 F Pulse Rate 112 H 120 H 114 H Respiratory Rate 16 16 16 Blood Pressure 137/90 117/61 137/90 Pulse Oximetry 94 L 98 98 02/07/18 13:25 02/07/18 13:39 02/07/18 14:00 Temperature 98.6 F Pulse Rate 104 H 98 H Respiratory Rate 16 23 Blood Pressure 142/76 H 135/65 126/68 Pulse Oximetry 97 97 02/07/18 15:00 02/07/18 16:00 02/07/18 17:00 Temperature 98.1 F Pulse Rate 74 64 80 Respiratory Rate 29 H 12 23 Blood Pressure 115/67 114/62 Pulse Oximetry 93 L 93 L 02/07/18 18:29 02/07/18 19:00 02/07/18 20:00 Temperature Pulse Rate 82 87 112 H Respiratory Rate 21 22 16 Blood Pressure 127/69 141/72 H 133/77 Pulse Oximetry 92 L 94 L 94 L 02/07/18 21:00 02/07/18 22:00 02/07/18 23:00 Temperature Pulse Rate 95 H 106 H 101 H Respiratory Rate 18 21 18 Blood Pressure 133/77 140/82 141/81 H Pulse Oximetry 94 L 92 L 94 L 02/07/18 23:30 02/08/18 00:00 02/08/18 02:00 Temperature 98.5 F Pulse Rate 101 H 102 H Respiratory Rate 16 16 Blood Pressure 135/76 125/69 Pulse Oximetry 93 L 94 L 94 L 02/08/18 04:00 02/08/18 05:00 02/08/18 06:00 Temperature 98.2 F Pulse Rate 62 84 114 H Respiratory Rate 12 18 20 Blood Pressure 126/70 131/78 135/80 Pulse Oximetry 96 98 94 L 02/08/18 07:56 Temperature Pulse Rate Respiratory Rate Blood Pressure Pulse Oximetry 98 Intake & Output 02/07/18 02/08/18 02/08/18 18:59 06:59 18:59 Intake Total 1130 / 1130 100 / 100 250 / 250 Output Total 200 / 200 Balance 930 / 930 100 / 100 250 / 250 Weight 55.4 kg Intake: IV 100 / 100 250 / 250 Azithromycin Inj 500 MG In NS 250 / 250 Inj 250 ML @ 250 mls/hr IV.SIG Q24H KARI Rx#:[id number] Rocephin Inj 1,000 MG In NS Inj 100 / 100 100 ML @ 200 mls/hr IV.SIG Q24H KARI Rx#:[id number] Oral 480 / 480 Anesthesia Amount 650 / 650 Output: Urine 200 / 200 Other: Post Void Residual 400 # Voids 3 Date of Last Bowel Movement 02/07/18 02/06/18 # Bowel Movements 1 Narrative: GENERAL: Well-developed, well-nourished elderly male patient in [facility]. SKIN: Warm and dry. No rash. HEAD: Normocephalic. Atraumatic. EYES: Pupils equal and round. No scleral icterus. No injection or drainage. ENT: No nasal bleeding or discharge. Mucous membranes pink and moist. NECK: Supple. Trachea midline. CARDIOVASCULAR: Regular rate and rhythm. S1, S2 noted. No murmur appreciated. RESPIRATORY: No accessory muscle use. Diminished breath sounds throughout. Breath sounds equal bilaterally. GASTROINTESTINAL: Abdomen soft, non-tender, nondistended. Normoactive bowel sounds x4. MUSCULOSKELETAL: No obvious deformities. Extremities without clubbing, cyanosis , or edema. NEUROLOGICAL: Awake and alert. No obvious cranial nerve deficits. Motor grossly within normal limits. 5/5 muscle strength in bilateral upper and lower extremities. Normal speech. PSYCHIATRIC: Appropriate mood and affect; insight and judgment normal. Results - Labs CBC & Chem 7: 02/07/18 04:30 02/07/18 04:30 Microbiology 02/07/18 12:15 Bronchial - Right Lower Lobe Gram Stain - Final 02/07/18 12:15 Bronchial Washings - Right Lower Lobe Fungal Smear - Final No fungal elements seen 02/03/18 21:00 Blood - Peripheral Aerobic Blood Culture - Preliminary No growth in 4 days 02/03/18 21:00 Blood - Peripheral Anaerobic Blood Culture - Preliminary No growth in 4 days 02/03/18 21:10 Blood - Peripheral Aerobic Blood Culture - Preliminary No growth in 4 days 02/03/18 21:10 Blood - Peripheral Anaerobic Blood Culture - Preliminary No growth in 4 days - Imaging Impressions Chest X-Ray 02/07/18 12:14 CONCLUSION: Right-sided effusion and chronic interstitial changes. Similar exam from previous. Assessment and Plan - Assessment (1) Weight loss Code(s): R63.4 - Abnormal weight loss Status: Acute (2) Atrial fibrillation with RVR Code(s): I48.91 - Unspecified atrial fibrillation Status: Acute (3) Cough Code(s): R05 - Cough Status: Acute - Plan Atrial fibrillation with RVR -Heart rate controlled at this time -Cardizem 240 mg daily, cardiology in to see patient today. -Digoxin 125 mcg daily -Cardiology was consulted for management, appreciate input and recommendations. -Cardiology did adjust medications to switch to Cardizem 240 mg daily, digoxin 0.125 mg daily, discontinuation of metoprolol. Cardiology to increase rate control today. -Patient was anticoagulated on Xarelto, resumed. Large right basilar opacity concerning for mass, airspace disease, pleural effusion. -Patient treated for pneumonia with Rocephin and Zithromax -Bronchoscopy performed yesterday 02/08/18, patient can follow-up outpatient for pathology. Washings pending. -Continue duo nebs -Pulmonology is following the patient and requests that the patient stay last evening. Awaiting dc order from pulmonology. -Oncology is following the patient, continue outpatient follow-up for pathology and possible treatment. Weight loss -Continue nutritional supplement -Dietary consulted, appreciate input. Added multivitamin and Megace. Slurred speech -CT the brain was unremarkable for any acute abnormality. DVT prevention -Resume Xarelto Discharge Planning: Await pulmonary clearance for discharge, will be seen later today.
--- NOTE | 2018-02-08 12:37 | P.PNCA ---
Subjective Interval history: Heart rates mostly controlled, 80-115 Bronch yesterday, feels ok today No complications Physical Exam Vital signs: Vital Signs 02/07/18 12:45 02/07/18 12:49 02/07/18 13:00 Temperature 98.8 F Pulse Rate 112 H 120 H 114 H Respiratory Rate 16 16 16 Blood Pressure 137/90 117/61 137/90 Pulse Oximetry 94 L 98 98 02/07/18 13:25 02/07/18 13:39 02/07/18 14:00 Temperature 98.6 F Pulse Rate 104 H 98 H Respiratory Rate 16 23 Blood Pressure 142/76 H 135/65 126/68 Pulse Oximetry 97 97 02/07/18 15:00 02/07/18 16:00 02/07/18 17:00 Temperature 98.1 F Pulse Rate 74 64 80 Respiratory Rate 29 H 12 23 Blood Pressure 115/67 114/62 Pulse Oximetry 93 L 93 L 02/07/18 18:29 02/07/18 19:00 02/07/18 20:00 Temperature Pulse Rate 82 87 112 H Respiratory Rate 21 22 16 Blood Pressure 127/69 141/72 H 133/77 Pulse Oximetry 92 L 94 L 94 L 02/07/18 21:00 02/07/18 22:00 02/07/18 23:00 Temperature Pulse Rate 95 H 106 H 101 H Respiratory Rate 18 21 18 Blood Pressure 133/77 140/82 141/81 H Pulse Oximetry 94 L 92 L 94 L 02/07/18 23:30 02/08/18 00:00 02/08/18 02:00 Temperature 98.5 F Pulse Rate 101 H 102 H Respiratory Rate 16 16 Blood Pressure 135/76 125/69 Pulse Oximetry 93 L 94 L 94 L 02/08/18 04:00 02/08/18 05:00 02/08/18 06:00 Temperature 98.2 F Pulse Rate 62 84 114 H Respiratory Rate 12 18 20 Blood Pressure 126/70 131/78 135/80 Pulse Oximetry 96 98 94 L 02/08/18 07:56 Temperature Pulse Rate Respiratory Rate Blood Pressure Pulse Oximetry 98 Intake & Output 02/07/18 02/08/18 02/08/18 18:59 06:59 18:59 Intake Total 1130 / 1130 100 / 100 250 / 250 Output Total 200 / 200 Balance 930 / 930 100 / 100 250 / 250 Weight 55.4 kg Intake: IV 100 / 100 250 / 250 Azithromycin Inj 500 MG In NS 250 / 250 Inj 250 ML @ 250 mls/hr IV.SIG Q24H KARI Rx#:[id number] Rocephin Inj 1,000 MG In NS Inj 100 / 100 100 ML @ 200 mls/hr IV.SIG Q24H KARI Rx#:[id number] Oral 480 / 480 Anesthesia Amount 650 / 650 Output: Urine 200 / 200 Other: Post Void Residual 400 # Voids 3 Date of Last Bowel Movement 02/07/18 02/06/18 # Bowel Movements 1 Narrative: GENERAL: Well-developed, well-nourished patient in [facility]. SKIN: Warm and dry. No rash. HEAD: Normocephalic. Atraumatic. EYES: Pupils equal and round. No scleral icterus. No injection or drainage. ENT: No nasal bleeding or discharge. Mucous membranes pink and moist. NECK: Supple. Trachea midline. CARDIOVASCULAR: Regular rate and rhythm. S1, S2 noted. No murmur appreciated. RESPIRATORY: No accessory muscle use. Clear to auscultation. Breath sounds equal bilaterally. GASTROINTESTINAL: Abdomen soft, non-tender, nondistended. Normoactive bowel sounds x4. MUSCULOSKELETAL: No obvious deformities. Extremities without clubbing, cyanosis , or edema. NEUROLOGICAL: Awake and alert. No obvious cranial nerve deficits. Motor grossly within normal limits. 5/5 muscle strength in bilateral upper and lower extremities. Normal speech. PSYCHIATRIC: Appropriate mood and affect; insight and judgment normal. Assessment and Plan - Assessment (1) Atrial fibrillation with RVR Code(s): I48.91 - Unspecified atrial fibrillation Status: Acute (2) Weight loss Code(s): R63.4 - Abnormal weight loss Status: Acute (3) Mass of lung parenchyma Code(s): R91.8 - Other nonspecific abnormal finding of lung field Status: Acute - Plan 1) Afib with RVR Now controlled Con't Digoxin/Cardizem Will attempt to increase Cardizem Previously on Xarelto Restarted 2) Large opacity Bronch today for evaluation for malignancy 3) Weight loss Being worked up for malignancy 4) Overall he was moderate risk for bronch But if higher risk procedure (wedge resection, pneumonectomy, etc) he would need to undergo further risk assessment But from Heme/Onc, does not appear to be a candidate for further surgery, but if consideration will need to be reconsulted to review risk 5) Will see PRN, call with questions
--- NOTE | 2018-02-08 12:39 | P.DCO ---
- Home Health Nursing Order: Medical education, Signs/symptoms of disease process, Medication education-adverse effect, Nursing assessment with vital signs - Certification I have seen patient Bandar Ca on 02/08/18. My clinical findings support the need for the requested home health care services because: Limited mobility due to disease progression, Patient has SOB, Deconditioned with increased weakness I certify that my clinical findings support that this patient is homebound because: Hx COPD - exertion dyspnea/weakness
--- NOTE | 2018-02-08 13:32 | P.PNPAL ---
Reason for Visit Reason for visit: a. To assist with evaluation and management of symptoms including: poor appetite, dyspnea b. To assist medical decision maker(s) with: better understanding of current medical conditions; weighing benefits/burdens of medical treatment options; making medical treatment decisions. Subjective Subjective/Interval History: Mr. Ca is a 72-year-old gentleman who was admitted to [facility] ED in [place] on 02/03/2018 in A. fib with RVR. Patient also complained of progressively increased shortness of breath, generalized weakness, poor appetite and a nonproductive cough. Follow-up visit for symptom management and clarification of medical treatment goals. Patient seen and examined in the intensive care unit, no apparent distress. Oxygenation saturation in the high 90s on RA. Patient reports shortness of breath with minimal activity. Heart rate better controlled, 84- 114. Patient trying to eat better. He is on supplemental shakes and was started on an appetite stimulant. Dietary evaluated the patient. Recommended Theragran- M daily and Enlive TID. CT chest revealed a large right basilar opacity which has characteristic findings indicating a combination of mass, consolidating airspace disease and pleural fluid accumulations. Endobronchial mass and occlusion involving the right bronchus intermedius and bronchus to the right lower lobe; small spiculated left upper lobe masses and pleural-based nodules in the right lung as described; COPD. Status post bronchoscopy on 02/07/2018; cytology and biopsy results pending. Plan to discharge home with home health care. Outpatient follow-up visit scheduled with Dr. Flanagan on 02/11/2018. Objective Vital Signs: Vital Signs 02/07/18 13:25 02/07/18 13:39 02/07/18 14:00 Temperature 98.6 F Pulse Rate 104 H 98 H Respiratory Rate 16 23 Blood Pressure 142/76 H 135/65 126/68 Pulse Oximetry 97 97 02/07/18 15:00 02/07/18 16:00 02/07/18 17:00 Temperature 98.1 F Pulse Rate 74 64 80 Respiratory Rate 29 H 12 23 Blood Pressure 115/67 114/62 Pulse Oximetry 93 L 93 L 02/07/18 18:29 02/07/18 19:00 02/07/18 20:00 Temperature Pulse Rate 82 87 112 H Respiratory Rate 21 22 16 Blood Pressure 127/69 141/72 H 133/77 Pulse Oximetry 92 L 94 L 94 L 02/07/18 21:00 02/07/18 22:00 02/07/18 23:00 Temperature Pulse Rate 95 H 106 H 101 H Respiratory Rate 18 21 18 Blood Pressure 133/77 140/82 141/81 H Pulse Oximetry 94 L 92 L 94 L 02/07/18 23:30 02/08/18 00:00 02/08/18 02:00 Temperature 98.5 F Pulse Rate 101 H 102 H Respiratory Rate 16 16 Blood Pressure 135/76 125/69 Pulse Oximetry 93 L 94 L 94 L 02/08/18 04:00 02/08/18 05:00 02/08/18 06:00 Temperature 98.2 F Pulse Rate 62 84 114 H Respiratory Rate 12 18 20 Blood Pressure 126/70 131/78 135/80 Pulse Oximetry 96 98 94 L 02/08/18 07:56 Temperature Pulse Rate Respiratory Rate Blood Pressure Pulse Oximetry 98 Intake & Output 02/07/18 02/08/18 02/08/18 18:59 06:59 18:59 Intake Total 1130 / 1130 100 / 100 250 / 250 Output Total 200 / 200 Balance 930 / 930 100 / 100 250 / 250 Weight 55.4 kg Intake: IV 100 / 100 250 / 250 Azithromycin Inj 500 MG In NS 250 / 250 Inj 250 ML @ 250 mls/hr IV.SIG Q24H KARI Rx#:[id number] Rocephin Inj 1,000 MG In NS Inj 100 / 100 100 ML @ 200 mls/hr IV.SIG Q24H KARI Rx#:[id number] Oral 480 / 480 Anesthesia Amount 650 / 650 Output: Urine 200 / 200 Other: Post Void Residual 400 # Voids 3 Date of Last Bowel Movement 02/07/18 02/06/18 # Bowel Movements 1 Physical Exam: CONSTITUTIONAL/GENERAL: This is an adequately nourished patient, in no apparent distress. TUBES/LINES/DRAINS: SKIN: No jaundice, rashes, or lesions. Ecchymoses on upper extremities. No wounds seen anteriorly. Skin temperature appropriate. Not diaphoretic. HEAD: Atraumatic. Normocephalic. EYES: Pupils equal and round and reactive. Extraocular motions intact. No scleral icterus. No injection or drainage. Fundi not examined. ENT: Hearing grossly normal. Nose without bleeding or purulent drainage. Throat without visible erythema, exudates, masses, or lesions. NECK: Trachea midline. Supple, nontender. No palpable thyroid enlargement or nodularity. CARDIOVASCULAR: Regular rate and rhythm without murmurs, gallops, or rubs. No JVD. Peripheral pulses symmetric. RESPIRATORY/CHEST: Symmetric, unlabored respirations. Clear to auscultation. Breath sounds equal bilaterally. No wheezes, rales, or rhonchi. GASTROINTESTINAL: Abdomen soft, non-tender, nondistended. No hepato-splenomegaly , or palpable masses. No guarding. Bowel sounds present. GENITOURINARY: Without palpable bladder distension. Cabrales catheter in place. MUSCULOSKELETAL: Extremities without clubbing, cyanosis, or edema. No joint tenderness or effusion noted. No calf tenderness. No mottling or clubbing. LYMPHATICS: No palpable cervical or supraclavicular adenopathy. NEUROLOGICAL: Awake and alert. Motor and sensory grossly within normal limits. Follows commands. Cognitively sharp. Moves all extremities. PSYCHIATRIC: No obvious anxiety/depression. no apparent hallucinations or other psychotic thought process. Diagnostic Tests Laboratory: Laboratory Results - last 72 hr 02/06/18 02/06/18 02/07/18 11:48 11:48 04:30 CBC w Diff Auto diff final Slide review pending WBC 12.0 H 11.4 H RBC 4.19 L 3.74 L Hgb 12.4 L 10.9 L Hct 38.0 L 33.8 L MCV 90.7 90.4 MCH 29.6 29.1 MCHC 32.6 32.2 RDW 14.6 14.9 Plt Count 457 H 434 MPV 8.1 8.6 Neut % (Auto) 71.2 H 68.4 Lymph % (Auto) 6.7 L 8.3 L [place] % (Auto) 8.4 H 11.2 H Eos % (Auto) 9.1 H 10.8 H Baso % (Auto) 4.6 H 1.3 Neut # (Auto) 8.5 H 7.9 H Lymph # (Auto) 0.8 L 0.9 L [place] # (Auto) 1.0 H 1.3 H Eos # (Auto) 1.1 H 1.2 H Baso # (Auto) 0.6 H 0.1 WBC Differential . Manual diff final Seg Neuts % (Manual) 61 Band Neuts % (Manual) 7 H Lymphocytes % (Manual) 9 Monocytes % (Manual) 11 H Eosinophils % (Manual) 11 H Basophils % (Manual) 1 Abs Neuts (Manual) 7.8 H Differential Comment . . Platelet Estimate Normal Platelet Morphology Normal Ovalocytes 1+ H PT INR Sodium 141 Potassium 3.9 Chloride 104 Carbon Dioxide 31.4 Anion Gap 6 BUN 16 Creatinine 0.74 Estimated GFR Greater than 89 Random Glucose 92 Calcium 8.6 02/07/18 02/07/18 04:30 04:30 CBC w Diff WBC RBC Hgb Hct MCV MCH MCHC RDW Plt Count MPV Neut % (Auto) Lymph % (Auto) [place] % (Auto) Eos % (Auto) Baso % (Auto) Neut # (Auto) Lymph # (Auto) [place] # (Auto) Eos # (Auto) Baso # (Auto) WBC Differential Seg Neuts % (Manual) Band Neuts % (Manual) Lymphocytes % (Manual) Monocytes % (Manual) Eosinophils % (Manual) Basophils % (Manual) Abs Neuts (Manual) Differential Comment Platelet Estimate Platelet Morphology Ovalocytes PT 12.3 H INR 1.2 Sodium 145 Potassium 3.9 Chloride 110 H Carbon Dioxide 27.4 Anion Gap 8 BUN 17 Creatinine 0.59 L Estimated GFR Greater than 89 Random Glucose 101 Calcium 8.1 L Result Diagrams: 02/07/18 04:30 02/07/18 04:30 Microbiology: Microbiology 02/07/18 12:15 Gram Stain - Final Bronchial - Right Lower Lobe Bronchial Culture - Preliminary No growth in 24 hours 02/03/18 21:00 Aerobic Blood Culture - Final Blood - Peripheral No growth in 5 days Anaerobic Blood Culture - Final No growth in 5 days 02/03/18 21:10 Aerobic Blood Culture - Final Blood - Peripheral No growth in 5 days Anaerobic Blood Culture - Final No growth in 5 days 02/07/18 12:15 Fungal Smear - Final Bronchial Washings - Right Lower Lobe No fungal elements seen Imaging: Head CT 02/04/18 00:00 CONCLUSION: 1. Negative CT Head non contrast. . Chest CT 02/04/18 09:00 CONCLUSION: 1. Large right basilar opacity which has characteristic findings indicating a combination of mass, consolidating airspace disease and pleural fluid accumulations. 2. 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 3. Small spiculated left upper lobe masses and pleural-based nodules in the right lung as described. 4. COPD. Chest X-Ray 02/07/18 12:14 CONCLUSION: Right-sided effusion and chronic interstitial changes. Similar exam from previous. Assessment and Plan Pertinent Non-Medical Issues: Psychosocial: Patient is a of the . 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 He has been to his , Eufemia, for 11 years. They have been together for 22 years. Eufemia states she has a son from her first marriage , and the patient has a stepdaughter from his first marriage who he keeps in touch with. Spiritual: Pending further conversations Legal: Per [place] statutes, in the absence of her advanced directives healthcare proxy decision making falls to the patient's , Eufemia. Ethical issues impacting care: No known ethical issues impacting care at this time Important Contacts: Eufemia Ca, : [phone] Prognosis: Patient is a cachectic appearing 72-year-old male with a newly diagnosed right lower lobe lung mass concerning for malignancy status post bronchoscopy. Awaiting cytology and biopsy results. Patient is likely not a candidate for surgical resection given his poor functional status and the likelihood of metastatic disease or second primary in the left lung which appears to be a spiculated mass. He may be a candidate of for palliative chemotherapy or combination chemoradiotherapy, but he is at high risk for ongoing decline in complications. Code Status: Full Code Plan: * FULL CODE * Decision making: Patient currently shows inside regarding his medical conditions. In the event he were to lose capacity for medical decision making, [place] statutes dictate that in the absence of written advanced directives healthcare proxy decision making would fall to the patient's . * The process of cardiopulmonary resuscitation was reviewed in detail with the patient. Patient states that he would not want CPR and intubation if he had no chance at all, but otherwise he would want to at least try. He is feeling overwhelmed by everything that has happened in the past few days and needs some time to process the information. His goals are aggressive at this time pending biopsy results. CODE STATUS remains FULL CODE. * Plan to discharge home with home health care. * Status post bronchoscopy on 02/07/2018; cytology and biopsy results pending. Outpatient follow-up visit scheduled with Dr. Flanagan on 02/11/2018. * Discussed patient with Yasmine Lee APRN * Symptom management: Dyspnea: Patient presented to the ED with complaints of progressively increased shortness of breath in recent weeks, and a nonproductive that began several months ago. CXR concerning for pneumonia. CT chest on 02/04/2018 revealed a large right basilar opacity which has characteristic findings indicating a combination of mass, consolidating airspace disease and pleural fluid accumulations. Endobronchial mass and occlusion involving the right bronchus intermedius and bronchus to the right lower lobe; small spiculated left upper lobe masses and pleural-based nodules in the right lung as described; COPD. Pulmonology and oncology were Consulted. Patient receiving supplemental oxygen, empiric antibiotics and duo nebs status post bronchoscopy today; cytology and biopsy results pending. Poor appetite: Patient appears cachectic with muscle wasting. He reports unintentional weight loss in recent months stating he has no appetite; his has been supplementing his diet with boost. Dietary was consulted. Per dietary, patient is at 80% of his ideal body weight with a BMI of 18.4. Recommendations to start the patient on an appetite stimulant such as Megace. Dietary also recommended Theragran-M daily and Enlive TID. Will monitor nutritional intake, weight and clinical course. * Palliative care will continue to follow this patient to establish trust, assist with symptom management and clarification of medical treatment goals. Attestation Attestation: To help prompt me to consider important information that might be impacting today's encounter and assessment, information from prior notes written by myself or my colleagues may have been "brought forward" into today's note. My signature on this note, however, is an attestation that I personally performed the exam, history, and/or decision-making noted today, and, unless otherwise indicated, the interactions with patient, family, and staff as well as the review of records all occurred today. I also attest that the listed assessment and stated plan reflect my best clinical judgment today based on the combination of historical information, prior notes, and today's exam/ interactions. When time spent is documented, it refers only to time spent today by the signer, or if indicated, combined time spent today by collaborating physician/nurse practitioner.
[2018-02-08] MEDS ORDERED: dilTIAZem CD 120 MG Capsule PO ONE (14:00)
--- NOTE | 2018-02-08 18:21 | P.PN ---
Subjective Interval history: Has some cough but not SOB . Needs O2 2 L since he desats <90 on RA. Pathology reports not back yet. Physical Exam Vital signs: Vital Signs 02/07/18 18:29 02/07/18 19:00 02/07/18 20:00 Temperature Pulse Rate 82 87 112 H Respiratory Rate 21 22 16 Blood Pressure 127/69 141/72 H 133/77 Pulse Oximetry 92 L 94 L 94 L 02/07/18 21:00 02/07/18 22:00 02/07/18 23:00 Temperature Pulse Rate 95 H 106 H 101 H Respiratory Rate 18 21 18 Blood Pressure 133/77 140/82 141/81 H Pulse Oximetry 94 L 92 L 94 L 02/07/18 23:30 02/08/18 00:00 02/08/18 02:00 Temperature 98.5 F Pulse Rate 101 H 102 H Respiratory Rate 16 16 Blood Pressure 135/76 125/69 Pulse Oximetry 93 L 94 L 94 L 02/08/18 04:00 02/08/18 05:00 02/08/18 06:00 Temperature 98.2 F Pulse Rate 62 84 114 H Respiratory Rate 12 18 20 Blood Pressure 126/70 131/78 135/80 Pulse Oximetry 96 98 94 L 02/08/18 07:56 Temperature Pulse Rate Respiratory Rate Blood Pressure Pulse Oximetry 98 Intake & Output 02/07/18 02/08/18 02/08/18 18:59 06:59 18:59 Intake Total 1130 / 1130 100 / 100 250 / 250 Output Total 200 / 200 Balance 930 / 930 100 / 100 250 / 250 Weight 55.4 kg Intake: IV 100 / 100 250 / 250 Azithromycin Inj 500 MG In NS 250 / 250 Inj 250 ML @ 250 mls/hr IV.SIG Q24H [facility] Rx#:[id number] Rocephin Inj 1,000 MG In NS Inj 100 / 100 100 ML @ 200 mls/hr IV.SIG Q24H [facility] Rx#:[id number] Oral 480 / 480 Anesthesia Amount 650 / 650 Output: Urine 200 / 200 Other: Post Void Residual 400 # Voids 3 Date of Last Bowel Movement 02/07/18 02/06/18 # Bowel Movements 1 Narrative: GENERAL: Emaciated elderly male patient in [facility]. SKIN: Warm and dry. No rash. HEAD: Normocephalic. Atraumatic. EYES: Pupils equal and round. No scleral icterus. No injection or drainage. ENT: No nasal bleeding or discharge. Mucous membranes pink and moist. NECK: Supple. Trachea midline. CARDIOVASCULAR: Regular rate and rhythm. S1, S2 noted. No murmur appreciated. RESPIRATORY: No accessory muscle use. Diminished breath sounds throughout.Occ Right basal crackles. GASTROINTESTINAL: Abdomen soft, non-tender, nondistended. Normoactive bowel sounds x4. MUSCULOSKELETAL: No obvious deformities. Extremities without clubbing, cyanosis , or edema. NEUROLOGICAL: Awake and alert. No obvious cranial nerve deficits. Motor grossly within normal limits. Normal speech. PSYCHIATRIC: Appropriate mood and affect; insight and judgment normal. Results - Labs CBC & Chem 7: 02/07/18 04:30 02/07/18 04:30 Microbiology 02/07/18 12:15 Bronchial - Right Lower Lobe Gram Stain - Final 02/07/18 12:15 Bronchial - Right Lower Lobe Bronchial Culture - Preliminary No growth in 24 hours 02/03/18 21:00 Blood - Peripheral Aerobic Blood Culture - Final No growth in 5 days 02/03/18 21:00 Blood - Peripheral Anaerobic Blood Culture - Final No growth in 5 days 02/03/18 21:10 Blood - Peripheral Aerobic Blood Culture - Final No growth in 5 days 02/03/18 21:10 Blood - Peripheral Anaerobic Blood Culture - Final No growth in 5 days 02/07/18 12:15 Bronchial Washings - Right Lower Lobe Fungal Smear - Final No fungal elements seen Assessment and Plan - Assessment (1) Pneumonia Code(s): J18.9 - Pneumonia, unspecified organism Status: Acute (2) Mass of lung parenchyma Code(s): R91.8 - Other nonspecific abnormal finding of lung field Status: Acute (3) COPD (chronic obstructive pulmonary disease) Code(s): J44.9 - Chronic obstructive pulmonary disease, unspecified Status: Acute (4) Atrial fibrillation with RVR Code(s): I48.91 - Unspecified atrial fibrillation Status: Acute (5) Weight loss Code(s): R63.4 - Abnormal weight loss Status: Acute (6) Cough Code(s): R05 - Cough Status: Acute - Plan 1. Will arrange home o2 2 L 2. Continue antibiotics PO ceftin 500 Mg BID for 5 days 3. D/C Duonebs 4. Add Breo 100 Mcg, 1 puff daily 5. Home in am 6. Will see as OP in 1 week
[2018-02-08] MEDS: Azithromycin Inj 500 MG in Sodium Chlor 0.9% Inj 250 ML IV.SIG SCH (21:03)
[2018-02-09] MEDS ORDERED: dilTIAZem CD 180 MG Capsule PO SCH (09:00)
[2018-02-09] MEDS: Digoxin 125 MCG Tablet PO SCH (09:34)
[2018-02-09] MEDS: Senna/Docusate Sodium 8.6/50 MG Tablet PO SCH (09:35)
[2018-02-09] MEDS: Rivaroxaban 20 MG Tablet PO SCH (09:35)
--- NOTE | 2018-02-09 09:58 | P.DS ---
Date of admission: 02/03/18 19:05 Primary care physician: UNKNOWN Anticipated date of discharge: 02/09/18 Brief History from admission: Mr. Ca is a 72 yo M with PMH atrial fibrillation who presents to [facility] ED per his Family Service Aide Dr. Zarate due to being in RVR Afib in the office earlier today. Patient reports that he was diagnosed with Afib several months ago [07/2017 per EMR]. Patient states that he was doing well previously on Cardizem, but that his pharmacy (which he uses through the [facility]) no longer had Cardizem in stock so he was switched to Metoprolol ER 25mg several weeks ago. Since then, patient has been breathing fast and feeling tired, and he assumes that his heart rate has been elevated. Patient has also had a cough which is generally nonproductive for several weeks and has been losing weight; his has been trying to supplement his diet with Boost supplements. No associated hemoptysis. No chest pain. Patient has some increased urination at night and weak stream. No bowel abnormalities. No numbness/tingling/weakness. Patient update on day of discharge: Doing well. Sitting up in chair comfortably in nad. Failed walk test. Will require home O2. No acute events overnight. ABX upon DC. Follow up PCP, quality control inspector and oncologist. All questions answered. Agreeable to the plan. DS: Diagnosis - Discharge Diagnosis (1) Atrial fibrillation with RVR Status: Acute (2) Weight loss Status: Acute (3) Mass of lung parenchyma Status: Acute (4) COPD (chronic obstructive pulmonary disease) Status: Acute (5) Dyspnea Status: Acute DS: Medications - Discharge Medications Prescriptions: cefuroxime axetil 500 mg PO Q12H 5 Days #10 tab diltiazem HCl [Cardizem CD] 360 mg PO DAILY #30 cap fluticasone-vilanterol [Breo Ellipta] 1 inh INHALATION DAILY 30 Days each megestrol 40 mg PO TID #30 tab DS: Summary Hospital Course: This is a 72-year-old male patient who presented with a fib RVR on presentation. Heart rate controlled at this time. Cardiology was consulted during hospitalization. Started on Cardizem daily, with HR well controlled. Continued on Digoxin 125 mcg daily and discontinuation of metoprolol. Patient was anticoagulated on Xarelto, resumed upon discharge. Patient was found to have a large right basilar opacity concerning for mass, airspace disease, pleural effusion. Patient treated for pneumonia with Rocephin and Zithromax, dcd on [id number] mg PO for 5 days. Bronchoscopy [id number]/18, patient can follow-up outpatient for pathology with oncology. Duo nebs during hospitalization, dcd on dc. Started on Breo inhaler for home. Patient failed walk test and requiring home O2. Ordered and arranged by CM. Pulmonology is following the patient, will follow up outpatient upon dc. Oncology is following the patient, continue outpatient follow-up for pathology and possible treatment. Patient has had significant weight loss, continued on nutritional supplement as well as started on multivitamin and Megace for appetite stimulation. Patient did initially have slurred speech although this has resolved by day of dc, a head CT was done and unremarkable for any acute abnormality. Patient is stable and will be dcd home. Follow up PCP, quality control inspector and oncology. - Time Spent with Patient Total time spent providing and/or coordinating discharge services: Greater than 30 minutes Exam Vital signs: Vital Signs 02/08/18 10:00 02/08/18 11:00 02/08/18 13:00 Temperature 97.6 F Pulse Rate 106 H 84 90 Respiratory Rate 27 H 18 24 Blood Pressure 126/71 127/74 137/72 Pulse Oximetry 92 L 94 L 94 L Pulse Oximetry [Exertion on Room Air] Pulse Oximetry [Exertion with Oxygen] Pulse Oximetry [Resting with Oxygen] 02/08/18 14:00 02/08/18 15:00 02/08/18 16:00 Temperature 98.1 F Pulse Rate 84 80 84 Respiratory Rate 23 23 30 H Blood Pressure 110/57 L 103/59 L 125/63 Pulse Oximetry 92 L 93 L 89 L Pulse Oximetry [Exertion on Room Air] Pulse Oximetry [Exertion with Oxygen] Pulse Oximetry [Resting with Oxygen] 02/08/18 17:00 02/08/18 18:00 02/08/18 19:00 Temperature 98.1 F Pulse Rate 84 92 H 80 Respiratory Rate 25 H 33 H 26 H Blood Pressure 128/69 90/66 L 105/57 L Pulse Oximetry 95 91 L 94 L Pulse Oximetry [Exertion on Room Air] Pulse Oximetry [Exertion with Oxygen] Pulse Oximetry [Resting with Oxygen] 02/08/18 19:25 02/08/18 20:00 02/08/18 21:00 Temperature Pulse Rate 80 74 Respiratory Rate 24 17 Blood Pressure 108/63 109/63 Pulse Oximetry 95 95 97 Pulse Oximetry [Exertion on Room Air] Pulse Oximetry [Exertion with Oxygen] Pulse Oximetry [Resting with Oxygen] 02/08/18 22:00 02/08/18 23:00 02/09/18 00:00 Temperature Pulse Rate 68 70 62 Respiratory Rate 17 16 18 Blood Pressure 94/61 L 113/74 110/68 Pulse Oximetry 98 97 95 Pulse Oximetry [Exertion on Room Air] Pulse Oximetry [Exertion with Oxygen] Pulse Oximetry [Resting with Oxygen] 02/09/18 01:12 02/09/18 02:00 02/09/18 03:00 Temperature Pulse Rate 74 76 62 Respiratory Rate 47 H 24 15 Blood Pressure 114/65 123/61 112/58 L Pulse Oximetry 96 96 98 Pulse Oximetry [Exertion on Room Air] Pulse Oximetry [Exertion with Oxygen] Pulse Oximetry [Resting with Oxygen] 02/09/18 04:00 02/09/18 05:00 02/09/18 06:00 Temperature 98.9 F Pulse Rate 62 68 80 Respiratory Rate 15 15 25 H Blood Pressure 118/66 111/62 118/67 Pulse Oximetry 100 97 94 L Pulse Oximetry [Exertion on Room Air] Pulse Oximetry [Exertion with Oxygen] Pulse Oximetry [Resting with Oxygen] 02/09/18 07:30 02/09/18 08:00 02/09/18 08:26 Temperature 97.5 F L Pulse Rate 83 Respiratory Rate 19 Blood Pressure 119/65 Pulse Oximetry 96 98 Pulse Oximetry [Exertion on Room Air] 86 L Pulse Oximetry [Exertion with Oxygen] 91 L Pulse Oximetry [Resting with Oxygen] 96 Intake & Output 02/08/18 02/09/18 02/09/18 18:59 06:59 18:59 Intake Total 1210 / 1210 350 / 350 Output Total 700 / 700 400 / 400 250 / 250 Balance 510 / 510 -50 / -50 -250 / -250 Weight 59.3 kg Intake: IV 250 / 250 350 / 350 Azithromycin Inj 500 MG In NS 250 / 250 250 / 250 Inj 250 ML @ 250 mls/hr IV.SIG Q24H [facility] Rx#:[id number] Rocephin Inj 1,000 MG In NS Inj 100 / 100 100 ML @ 200 mls/hr IV.SIG Q24H [facility] Rx#:[id number] Oral 960 / 960 Output: Urine 700 / 700 400 / 400 250 / 250 Other: Date of Last Bowel Movement 02/08/18 02/08/18 02/09/18 # Bowel Movements 4 1 - Constitutional no acute distress - Routine HEENT Exam Head: Present: normocephalic Eye: Present: EOMI, PERRL - Routine Neck Exam Present: supple - Routine Abdominal Exam Present: soft - Routine Skin Exam Present: intact - Routine Neurological Exam Present: alert, oriented X3 Results Procedures completed during hospitalization: Bronchoscopy Pending studies at discharge: Pending at discharge 02/07/18 09:34 Surgical [PTH] Routine Labs on day of discharge: Preliminary micro results at discharge 02/07/18 12:15 Bronchial Culture - Preliminary Bronchial - Right Lower Lobe No growth in 24 hours - Impressions ITS Impressions Head CT 02/04/18 00:00 CONCLUSION: 1. Negative CT Head non contrast. . Chest CT 02/04/18 09:00 CONCLUSION: 1. Large right basilar opacity which has characteristic findings indicating a combination of mass, consolidating airspace disease and pleural fluid accumulations. 2. 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 3. Small spiculated left upper lobe masses and pleural-based nodules in the right lung as described. 4. COPD. Chest X-Ray 02/07/18 12:14 CONCLUSION: Right-sided effusion and chronic interstitial changes. Similar exam from previous. Discharge Plan - Discharge Disposition Patient Disposition: /Home Health Service - Discharge Condition Condition: Stable - Discharge Order Discharge Orders: Discharge Order (Routine); Ordered 02/08/18 Ordered By: Yasmine Lee Hospitalist Clear for Discharge (Routine); Ordered 02/09/18 Ordered By: Yasmine Lee - Discharge Details Anticipated Discharge Date: 02/09/18 Discharge Comment: OK TO DC ONLY WHEN CLEARED BY PULMONOLOGY. - Physicians Team Primary Care Provider: UNKNOWN, Attending Provider: Neftali Brizuela Other Providers: Raji Zacarias DO ; Wei Flanagan MD ; Michael Soni MD ; Eliseo Bradley MD
--- NOTE | 2018-02-09 12:20 | P.PNPAL ---
Reason for Visit Reason for visit: a. To assist with evaluation and management of symptoms including: poor appetite, dyspnea b. To assist medical decision maker(s) with: better understanding of current medical conditions; weighing benefits/burdens of medical treatment options; making medical treatment decisions. Subjective Subjective/Interval History: Mr. Ca is a 72-year-old gentleman who was admitted to [facility] ED in [place] on 02/03/2018 in A. fib with RVR. Patient also complained of progressively increased shortness of breath, generalized weakness, poor appetite and a nonproductive cough. CT chest revealed a large right basilar opacity which has characteristic findings indicating a combination of mass, consolidating airspace disease and pleural fluid accumulations. Endobronchial mass and occlusion involving the right bronchus intermedius and bronchus to the right lower lobe; small spiculated left upper lobe masses and pleural-based nodules in the right lung as described; COPD. Status post bronchoscopy on 02/07/2018; cytology and biopsy results pending. Follow-up visit for symptom management and clarification of medical treatment goals. Patient seen and examined in the intensive care unit, no apparent distress. No acute events overnight. Patient has had significant weight loss; he had been drinking some supplemental shakes at home. BMI 18 0.4. Patient was started on Megace. Dietary recommended Theragran-M daily and Enlive TID. Tentative plan for discharge on antibiotics sometime today. Started on Brio inhaler. Patient failed his walk test, will require supplemental O2 at home. Case management coordinating discharge home with home health care, supplemental oxygen etc. We will follow-up with PCP, pulmonology and oncology outpatient. Follow-up visit for pathology and possible treatment scheduled with Dr. Flanagan (oncology) on 02/11/2018. Objective Vital Signs: Vital Signs 02/08/18 13:00 02/08/18 14:00 02/08/18 15:00 Temperature 97.6 F Pulse Rate 90 84 80 Respiratory Rate 24 23 23 Blood Pressure 137/72 110/57 L 103/59 L Pulse Oximetry 94 L 92 L 93 L Pulse Oximetry [Exertion on Room Air] Pulse Oximetry [Exertion with Oxygen] Pulse Oximetry [Resting with Oxygen] 02/08/18 16:00 02/08/18 17:00 02/08/18 18:00 Temperature 98.1 F Pulse Rate 84 84 92 H Respiratory Rate 30 H 25 H 33 H Blood Pressure 125/63 128/69 90/66 L Pulse Oximetry 89 L 95 91 L Pulse Oximetry [Exertion on Room Air] Pulse Oximetry [Exertion with Oxygen] Pulse Oximetry [Resting with Oxygen] 02/08/18 19:00 02/08/18 19:25 02/08/18 20:00 Temperature 98.1 F Pulse Rate 80 80 Respiratory Rate 26 H 24 Blood Pressure 105/57 L 108/63 Pulse Oximetry 94 L 95 95 Pulse Oximetry [Exertion on Room Air] Pulse Oximetry [Exertion with Oxygen] Pulse Oximetry [Resting with Oxygen] 02/08/18 21:00 02/08/18 22:00 02/08/18 23:00 Temperature Pulse Rate 74 68 70 Respiratory Rate 17 17 16 Blood Pressure 109/63 94/61 L 113/74 Pulse Oximetry 97 98 97 Pulse Oximetry [Exertion on Room Air] Pulse Oximetry [Exertion with Oxygen] Pulse Oximetry [Resting with Oxygen] 02/09/18 00:00 02/09/18 01:12 02/09/18 02:00 Temperature Pulse Rate 62 74 76 Respiratory Rate 18 47 H 24 Blood Pressure 110/68 114/65 123/61 Pulse Oximetry 95 96 96 Pulse Oximetry [Exertion on Room Air] Pulse Oximetry [Exertion with Oxygen] Pulse Oximetry [Resting with Oxygen] 02/09/18 03:00 02/09/18 04:00 02/09/18 05:00 Temperature 98.9 F Pulse Rate 62 62 68 Respiratory Rate 15 15 15 Blood Pressure 112/58 L 118/66 111/62 Pulse Oximetry 98 100 97 Pulse Oximetry [Exertion on Room Air] Pulse Oximetry [Exertion with Oxygen] Pulse Oximetry [Resting with Oxygen] 02/09/18 06:00 02/09/18 07:00 02/09/18 07:30 Temperature Pulse Rate 80 72 Respiratory Rate 25 H 24 Blood Pressure 118/67 112/63 Pulse Oximetry 94 L 96 96 Pulse Oximetry [Exertion on Room Air] Pulse Oximetry [Exertion with Oxygen] Pulse Oximetry [Resting with Oxygen] 02/09/18 08:00 02/09/18 08:26 02/09/18 09:00 Temperature 97.6 F Pulse Rate 86 92 H Respiratory Rate 24 24 Blood Pressure 119/65 118/66 Pulse Oximetry 91 L 93 L Pulse Oximetry [Exertion on Room Air] 86 L Pulse Oximetry [Exertion with Oxygen] 91 L Pulse Oximetry [Resting with Oxygen] 96 02/09/18 10:00 Temperature Pulse Rate 78 Respiratory Rate 50 H Blood Pressure 109/61 Pulse Oximetry 95 Pulse Oximetry [Exertion on Room Air] Pulse Oximetry [Exertion with Oxygen] Pulse Oximetry [Resting with Oxygen] Intake & Output 02/08/18 02/09/18 02/09/18 18:59 06:59 18:59 Intake Total 1210 / 1210 350 / 350 Output Total 700 / 700 400 / 400 250 / 250 Balance 510 / 510 -50 / -50 -250 / -250 Weight 59.3 kg Intake: IV 250 / 250 350 / 350 Azithromycin Inj 500 MG In NS 250 / 250 250 / 250 Inj 250 ML @ 250 mls/hr IV.SIG Q24H KARI Rx#:[id number] Rocephin Inj 1,000 MG In NS Inj 100 / 100 100 ML @ 200 mls/hr IV.SIG Q24H KARI Rx#:[id number] Oral 960 / 960 Output: Urine 700 / 700 400 / 400 250 / 250 Other: Date of Last Bowel Movement 02/08/18 02/08/18 02/08/18 # Bowel Movements 4 1 Physical Exam: CONSTITUTIONAL/GENERAL: This is an adequately nourished patient, in no apparent distress. TUBES/LINES/DRAINS: SKIN: No jaundice, rashes, or lesions. Ecchymoses on upper extremities. No wounds seen anteriorly. Skin temperature appropriate. Not diaphoretic. HEAD: Atraumatic. Normocephalic. EYES: Pupils equal and round and reactive. Extraocular motions intact. No scleral icterus. No injection or drainage. Fundi not examined. ENT: Hearing grossly normal. Nose without bleeding or purulent drainage. Throat without visible erythema, exudates, masses, or lesions. NECK: Trachea midline. Supple, nontender. No palpable thyroid enlargement or nodularity. CARDIOVASCULAR: Regular rate and rhythm without murmurs, gallops, or rubs. No JVD. Peripheral pulses symmetric. RESPIRATORY/CHEST: Symmetric, unlabored respirations. Clear to auscultation. Breath sounds equal bilaterally. No wheezes, rales, or rhonchi. GASTROINTESTINAL: Abdomen soft, non-tender, nondistended. No hepato-splenomegaly , or palpable masses. No guarding. Bowel sounds present. GENITOURINARY: Without palpable bladder distension. Cabrales catheter in place. MUSCULOSKELETAL: Extremities without clubbing, cyanosis, or edema. No joint tenderness or effusion noted. No calf tenderness. No mottling or clubbing. LYMPHATICS: No palpable cervical or supraclavicular adenopathy. NEUROLOGICAL: Awake and alert. Motor and sensory grossly within normal limits. Follows commands. Cognitively sharp. Moves all extremities. PSYCHIATRIC: No obvious anxiety/depression. no apparent hallucinations or other psychotic thought process. Diagnostic Tests Laboratory: Laboratory Results - last 72 hr 02/07/18 02/07/18 02/07/18 04:30 04:30 04:30 CBC w Diff Slide review pending WBC 11.4 H RBC 3.74 L Hgb 10.9 L Hct 33.8 L MCV 90.4 MCH 29.1 MCHC 32.2 RDW 14.9 Plt Count 434 MPV 8.6 Neut % (Auto) 68.4 Lymph % (Auto) 8.3 L [place] % (Auto) 11.2 H Eos % (Auto) 10.8 H Baso % (Auto) 1.3 Neut # (Auto) 7.9 H Lymph # (Auto) 0.9 L [place] # (Auto) 1.3 H Eos # (Auto) 1.2 H Baso # (Auto) 0.1 WBC Differential Manual diff final Seg Neuts % (Manual) 61 Band Neuts % (Manual) 7 H Lymphocytes % (Manual) 9 Monocytes % (Manual) 11 H Eosinophils % (Manual) 11 H Basophils % (Manual) 1 Abs Neuts (Manual) 7.8 H Differential Comment . Platelet Estimate Normal Platelet Morphology Normal Ovalocytes 1+ H PT 12.3 H INR 1.2 Sodium 145 Potassium 3.9 Chloride 110 H Carbon Dioxide 27.4 Anion Gap 8 BUN 17 Creatinine 0.59 L Estimated GFR Greater than 89 Random Glucose 101 Calcium 8.1 L Result Diagrams: 02/07/18 04:30 02/07/18 04:30 Microbiology: Microbiology 02/07/18 12:15 Gram Stain - Final Bronchial - Right Lower Lobe Bronchial Culture - Final No growth in 48 hours 02/07/18 12:15 Acid Fast Bacilli Smear - Final Bronchial Washings - Right Lower Lobe No acid fast bacilli seen 02/03/18 21:00 Aerobic Blood Culture - Final Blood - Peripheral No growth in 5 days Anaerobic Blood Culture - Final No growth in 5 days 02/03/18 21:10 Aerobic Blood Culture - Final Blood - Peripheral No growth in 5 days Anaerobic Blood Culture - Final No growth in 5 days 02/07/18 12:15 Fungal Smear - Final Bronchial Washings - Right Lower Lobe No fungal elements seen Assessment and Plan Pertinent Non-Medical Issues: Psychosocial: Patient is a of the . 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 He has been to his , Eufemia, for 11 years. They have been together for 22 years. Eufemia states she has a son from her first marriage , and the patient has a stepdaughter from his first marriage who he keeps in touch with. Spiritual: Pending further conversations Legal: Per [place] statutes, in the absence of her advanced directives healthcare proxy decision making falls to the patient's , Eufemia. Ethical issues impacting care: No known ethical issues impacting care at this time Important Contacts: Eufemia Ca, : [phone] Prognosis: Patient is a cachectic appearing 72-year-old male with a newly diagnosed right lower lobe lung mass concerning for malignancy status post bronchoscopy. Awaiting cytology and biopsy results. Patient is likely not a candidate for surgical resection given his poor functional status and the likelihood of metastatic disease or second primary in the left lung which appears to be a spiculated mass. He may be a candidate of for palliative chemotherapy or combination chemoradiotherapy, but he is at high risk for ongoing decline in complications. Code Status: Full Code Plan: * FULL CODE * Decision making: Patient currently shows inside regarding his medical conditions. In the event he were to lose capacity for medical decision making, [place] statutes dictate that in the absence of written advanced directives healthcare proxy decision making would fall to the patient's . * The process of cardiopulmonary resuscitation was reviewed in detail with the patient. Patient states that he would not want CPR and intubation if he had no chance at all, but otherwise he would want to at least try. He is feeling overwhelmed by everything that has happened in the past few days and needs some time to process the information. His goals are aggressive at this time pending biopsy results. CODE STATUS remains FULL CODE. * Plan to discharge home with home health care. * Status post bronchoscopy on 02/07/2018; cytology and biopsy results pending. Outpatient follow-up visit scheduled with Dr. Flanagan on 02/11/2018. * Discussed patient with Yasmine Lee APRN * Symptom management: Dyspnea: Patient presented to the ED with complaints of progressively increased shortness of breath in recent weeks, and a nonproductive that began several months ago. CXR concerning for pneumonia. CT chest on 02/04/2018 revealed a large right basilar opacity which has characteristic findings indicating a combination of mass, consolidating airspace disease and pleural fluid accumulations. Endobronchial mass and occlusion involving the right bronchus intermedius and bronchus to the right lower lobe; small spiculated left upper lobe masses and pleural-based nodules in the right lung as described; COPD. Pulmonology and oncology were Consulted. Patient receiving supplemental oxygen, empiric antibiotics and duo nebs status post bronchoscopy today; cytology and biopsy results pending. Poor appetite: Patient appears cachectic with muscle wasting. He reports unintentional weight loss in recent months stating he has no appetite; his has been supplementing his diet with boost. Dietary was consulted. Per dietary, patient is at 80% of his ideal body weight with a BMI of 18.4. Recommendations to start the patient on an appetite stimulant such as Megace. Dietary also recommended Theragran-M daily and Enlive TID. Will monitor nutritional intake, weight and clinical course. * Palliative care will continue to follow this patient to establish trust, assist with symptom management and clarification of medical treatment goals. Attestation Attestation: To help prompt me to consider important information that might be impacting today's encounter and assessment, information from prior notes written by myself or my colleagues may have been "brought forward" into today's note. My signature on this note, however, is an attestation that I personally performed the exam, history, and/or decision-making noted today, and, unless otherwise indicated, the interactions with patient, family, and staff as well as the review of records all occurred today. I also attest that the listed assessment and stated plan reflect my best clinical judgment today based on the combination of historical information, prior notes, and today's exam/ interactions. When time spent is documented, it refers only to time spent today by the signer, or if indicated, combined time spent today by collaborating physician/nurse practitioner.
== END 2018-02-09 14:30 | disposition home health service (06) ==
LOC: PHED 15:21 → PHEDA 15:21 → PHICU 21:35
PROVIDERS: ADMIT Internal Medicine; ATTEND Internal Medicine